=== PATIENT | female | born 2000 | race Caucasian/White ===

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

== ENCOUNTER 2022-06-11 21:19 | Emergency (ER) | payer OTHER, SELFPAY ==
[2022-06-11 22:01] VITALS: BP 126/72; PULSE 101; RESP 18; TEMP 36.8; O2SAT 98; BMI 26.5
[2022-06-11 22:27] LABS: MANUAL DIFF FLAG NO
[2022-06-11 22:33] LABS: Basophils Percent Auto 0.2 % (0-2); Eosinophils Absolute Auto 0.1 X10*3/uL (0.0-0.4); Eosinophils Percent Auto 0.8 % (0-4); Hematocrit 37.8 % (37.0-47.0); Hemoglobin 12.9 g/dl (12.0-16.0); Imm Gran Abs Auto 0.03 X10*3/uL (0.00-0.03); Imm Gran Pct Auto 0.3 % (0.0-0.4); Lymphocytes Absolute Auto 1.7 X10*3/uL (1.2-4.9); Lymphocytes Percent Auto 16.7 % (20-40); Mean Corpuscular HGB Conc 34.1 g/dl (31.0-35.0); Mean Corpuscular Hemoglobin 29.6 pg (27.0-33.0); Mean Corpuscular Volume 86.7 fL (80.0-98.0); Mean Platelet Volume 9.9 fL (9.4-12.3); Monocytes Absolute Auto 0.5 X10*3/uL (0.1-1.2); Monocytes Percent Auto 4.7 % (2-11); Neutrophils Percent Auto 77.3 % (45-73); Platelet Count 246 X10*3/uL (160-400); Red Blood Count 4.36 X10*6/uL (4.20-5.50); Red Cell Distribution Width 12.5 % (11.0-16.0); White Blood Count 10.4 X10*3/uL (4.8-10.8)
[2022-06-11 22:35] LABS: Appearance Urine HAZY; Color Urine YELLOW; Glucose Urine UA NEG (NEG); Leukocyte Esterase Urine 1+ (NEG); Nitrite Urine NEG (NEG); Specific Gravity - Urine 1.025 (1.005-1.025); UACC Culture Trigger YES; Urine Blood NEG (NEG); Urine Ketones NEG (NEG); Urine Protein NEG (NEG-TRACE)
[2022-06-11 22:37] LABS: UPreg QC Valid YES; Urine Pregnancy POSITIVE (NEGATIVE)
[2022-06-11 22:45] LABS: WBC Urine 0-2 /HPF (0-4)
[2022-06-11 22:46] LABS: Bacteria Urine 2+ /LPF; RBC Urine 0 /HPF (0); Squamous Epithelial Cell Urine 1+ /LPF
[2022-06-11 22:49] LABS: Alanine Aminotransferase 17 U/L (0-31); Albumin Level 4.1 g/dL (3.5-5.0); Alkaline Phosphatase 46 U/L (39-117); Anion Gap 11 (12-20); Aspartate Amino Transferase 17 U/L (5-31); Bilirubin Total 0.2 mg/dL (0.0-1.0); Blood Urea Nitrogen 9 mg/dL (9-16); Calcium 9.4 mg/dL (8.4-10.2); Carbon Dioxide 26 mmol/L (22-29); Chloride 103 mmol/L (96-108); Creatinine Clr Calc Pharmacy 130.9; Estimated Glomerular Filt Rate > 60; Glucose Random 85 mg/dL (60-115); Sodium 136 mmol/L (135-145); Total Protein 6.9 g/dL (6.5-8.0)
--- NOTE | 2022-06-12 00:48 | ED_ITS ---
HPI - Headache General Chief Complaint: Neuro Symptoms/Deficit Stated Complaint: blurring vision ,headache [id number] Time Seen by Provider: 06/11/22 22:47 Source: patient Mode of arrival: ambulatory Limitations: no limitations History of Present Illness HPI Narrative: Patient with no significant past medical history complaining of sudden onset of blurred vision with pain in behind eyes no nausea no vomiting no light sensitivity patient seems very anxious on arrival no history of prior headaches in the past. Patient is 4 months Related Data Allergies Allergy/AdvReac Type Severity Reaction Status Date / Time No Known Allergies Allergy Verified 06/11/22 22:01 Review of Systems Review of Systems: Yes all other systems are reviewed and are negative [facility] Social History Social History Advance Directives: No Physical Exam Vital Signs: Vital Signs: Last Vital Signs Temp 98.3 F 06/11/22 22:01 Pulse 97 06/12/22 01:35 Resp 16 06/12/22 01:35 BP 113/66 06/12/22 01:35 Pulse Ox 99 06/12/22 01:35 O2 Del Method 06/12/22 01:35 BMI result Body Mass Index 26.5 Appearance: Alert. Oriented X3. No acute distress. Anxious Eyes;Perrla, no nystagmus no tenderness on palpation of the eyeballs EOMI fundus examination normal no papilledema ENT: Pharynx normal. Oral Mucosa moist Neck: Normal inspection. Neck supple. CVS: Normal heart rate and rhythm. Pulses normal. Respiratory: No respiratory distress. Equal air entry bilateral, no wheezing/rales/rhonchi Skin: Skin warm and dry. Normal skin color. Normal skin turgor. Extremities: No lower extremity edema. Neuro: Oriented X 3. MDM - Headache MDM Narrative Medical decision making narrative: Patient nonspecific symptoms stable labs clinically ocular migraine discharge patient home on Tylenol patient is 4 months Lab Data Result diagrams: 06/11/22 22:20 06/11/22 22:20 Labs: Lab Results 06/11/22 06/11/22 06/11/22 Range/Units 22:20 22:20 22:20 WBC 10.4 (4.8-10.8) X10*3/uL RBC 4.36 (4.20-5.50) X10*6/uL Hgb 12.9 (12.0-16.0) g/dl Hct 37.8 (37.0-47.0) % MCV 86.7 (80.0-98.0) fL MCH 29.6 (27.0-33.0) pg MCHC 34.1 (31.0-35.0) g/dl RDW 12.5 (11.0-16.0) % Plt Count 246 (160-400) X10*3/uL MPV 9.9 (9.4-12.3) fL Immature Gran % (Auto) 0.3 (0.0-0.4) % Neut % (Auto) 77.3 H (45-73) % Lymph % (Auto) 16.7 L (20-40) % Josephine % (Auto) 4.7 (2-11) % Eos % (Auto) 0.8 (0-4) % Baso % (Auto) 0.2 (0-2) % Lymph # (Auto) 1.7 (1.2-4.9) X10*3/uL Josephine # (Auto) 0.5 (0.1-1.2) X10*3/uL Eos # (Auto) 0.1 (0.0-0.4) X10*3/uL Baso # (Auto) 0.0 (0.0-0.2) X10*3/uL Abs Immat Gran (auto) 0.03 (0.00-0.03) X10*3/uL Absolute Neuts (auto) 8.0 (2.0-8.3) x10*3/uL Absolute Nucleated RBC 0.000 (0.0-0.012) X10*3/uL Nucleated RBC % (auto) 0.0 (0.0-0.2) /100WBC Sodium 136 (135-145) mmol/L Potassium 4.0 (3.3-5.1) mmol/L Chloride 103 (96-108) mmol/L Carbon Dioxide 26 (22-29) mmol/L Anion Gap 11 L (12-20) BUN 9 (9-16) mg/dL Creatinine 0.61 (0.5-1.4) mg/dL Estim Creat Clear Calc 130.9 Estimated GFR > 60 Random Glucose 85 (60-115) mg/dL Calcium 9.4 (8.4-10.2) mg/dL Total Bilirubin 0.2 (0.0-1.0) mg/dL AST 17 (5-31) U/L ALT 17 (0-31) U/L Alkaline Phosphatase 46 (39-117) U/L Total Protein 6.9 (6.5-8.0) g/dL Albumin 4.1 (3.5-5.0) g/dL Urine Color Urine Appearance Urine pH (5.0-8.0) Ur Specific [place] (1.005-1.025) Urine Protein (NEG-TRACE) MG/DL Urine Glucose (UA) (NEG) MG/DL Urine Ketones (NEG) MG/DL Urine Blood (NEG) Urine Nitrite (NEG) Ur Leukocyte Esterase (NEG) Urine RBC (0) /HPF Urine WBC (0-4) /HPF Ur Squamous Epith Cells /LPF Urine Bacteria /LPF Urine Test POSITIVE H (NEGATIVE) 06/11/22 Range/Units 22:20 WBC (4.8-10.8) X10*3/uL RBC (4.20-5.50) X10*6/uL Hgb (12.0-16.0) g/dl Hct (37.0-47.0) % MCV (80.0-98.0) fL MCH (27.0-33.0) pg MCHC (31.0-35.0) g/dl RDW (11.0-16.0) % Plt Count (160-400) X10*3/uL MPV (9.4-12.3) fL Immature Gran % (Auto) (0.0-0.4) % Neut % (Auto) (45-73) % Lymph % (Auto) (20-40) % Josephine % (Auto) (2-11) % Eos % (Auto) (0-4) % Baso % (Auto) (0-2) % Lymph # (Auto) (1.2-4.9) X10*3/uL Josephine # (Auto) (0.1-1.2) X10*3/uL Eos # (Auto) (0.0-0.4) X10*3/uL Baso # (Auto) (0.0-0.2) X10*3/uL Abs Immat Gran (auto) (0.00-0.03) X10*3/uL Absolute Neuts (auto) (2.0-8.3) x10*3/uL Absolute Nucleated RBC (0.0-0.012) X10*3/uL Nucleated RBC % (auto) (0.0-0.2) /100WBC Sodium (135-145) mmol/L Potassium (3.3-5.1) mmol/L Chloride (96-108) mmol/L Carbon Dioxide (22-29) mmol/L Anion Gap (12-20) BUN (9-16) mg/dL Creatinine (0.5-1.4) mg/dL Estim Creat Clear Calc Estimated GFR Random Glucose (60-115) mg/dL Calcium (8.4-10.2) mg/dL Total Bilirubin (0.0-1.0) mg/dL AST (5-31) U/L ALT (0-31) U/L Alkaline Phosphatase (39-117) U/L Total Protein (6.5-8.0) g/dL Albumin (3.5-5.0) g/dL Urine Color YELLOW Urine Appearance HAZY Urine pH 6.0 (5.0-8.0) Ur Specific [place] 1.025 (1.005-1.025) Urine Protein NEG (NEG-TRACE) MG/DL Urine Glucose (UA) NEG (NEG) MG/DL Urine Ketones NEG (NEG) MG/DL Urine Blood NEG (NEG) Urine Nitrite NEG (NEG) Ur Leukocyte Esterase 1+ H (NEG) Urine RBC 0 (0) /HPF Urine WBC 0-2 (0-4) /HPF Ur Squamous Epith Cells 1+ /LPF Urine Bacteria 2+ /LPF Urine Test (NEGATIVE) Discharge Plan Discharge Clinical Impression: Ocular migraine Patient Disposition: Home, Self-Care Instructions: Ocular Migraine (ED) Additional Instructions: Rest at home Take Tylenol for headache Your limited in taking the medication, follow with your PCP if headache continues Report to the ED if vomiting fever worsening of the headache Interventions: ED Discharge Assessment Last Done: 06/12/22 01:40 Discharge Date/Time: 06/12/22 01:41
[2022-06-12 01:35] VITALS: BP 113/66; PULSE 97; RESP 16; O2SAT 99
== END 2022-06-12 01:41 | disposition home or self-care (01) ==
PROVIDERS: Emergency Provider Internal Medicine; PCP Physician Assistant
DX: G43.909 Migraine, unspecified, not intractable, without status migrainosus (principal); H53.8 Other visual disturbances; Z79.899 Other long term (current) drug therapy
CPT/HCPCS: 36415; 80053; 81001; 81025; 85025; 87086; 99283; 99284

== ENCOUNTER 2022-12-08 20:59 | Emergency (ER) | payer OTHER, SELFPAY ==
--- NOTE | ~2022-12-08 | CT_ITS ---
EXAMINATION: CT ABDOMEN AND PELVIS WITHOUT CONTRAST CLINICAL INFORMATION: Right lower quadrant pain with question of appendicitis COMPARISON: None TECHNIQUE: Multidetector volumetric imaging was performed from the superior aspect of the liver through the pubic symphysis. Sagittal and coronal reformatted images were obtained on the technologist's workstation. This CT examination was performed using dose optimization techniques as appropriate, variously including the following: *Automated exposure control *Adjustment of mA and/or kV according to patient size (this includes techniques or standardized protocols for targeted exams where dose is matched to indication/reason for exam; i.e. extremities or head) *Use of iterative reconstruction technique DLP: 566 mGy-cm FINDINGS: LUNG BASES: The visualized lung bases are unremarkable. LIVER, GALLBLADDER, AND BILIARY TREE: The liver is normal in size, shape, and attenuation. No focal hepatic lesion or biliary ductal dilatation is present. The gallbladder is unremarkable with no evidence of radiopaque gallstones, gallbladder wall thickening, or obvious pericholecystic inflammatory changes. PANCREAS: Unremarkable. SPLEEN: There is mild splenomegaly with spleen measuring 13.1 cm in greatest length ADRENAL GLANDS: Unremarkable. KIDNEYS AND URETERS: The kidneys are normal in size, shape, and attenuation. There is a 2 mm nonobstructing calculus present in the mid to upper right kidney. No hydronephrosis, hydroureter, or additional calculi seen. No perinephric stranding. BLADDER: Unremarkable. GASTROINTESTINAL TRACT: The small and large bowel are unremarkable. The appendix is unremarkable. ABDOMINAL WALL: No significant hernia is appreciated. LYMPH NODES: No retroperitoneal lymphadenopathy. VASCULAR: Unremarkable. PELVIC VISCERA: Unremarkable. OSSEOUS STRUCTURES: Unremarkable. CT/CT abdomen pelvis wo IV con IMPRESSION: 1. A cause for the patient's acute right lower quadrant pain has not been found. The appendix is normal. 2. Incidental note made of mild splenomegaly and a 2 mm nonobstructing right renal calculus. Fleischner guidelines were followed.
[2022-12-08 21:01] VITALS: BP 113/69; PULSE 122; RESP 18; TEMP 36.7; O2SAT 97; BMI 28.3
[2022-12-08 21:20] LABS: MANUAL DIFF FLAG NO
--- OUTSIDE RECORDS SUMMARY | 2022-12-08 21:22 | XMS_ITS | Continuity of Care Document ---
:2000 Author Organization [facility] Address [address] [place] [id number]- Care Team Providers Name Role Phone Jonathon PEACE, [facility] Primary Care Physician Encounter [facility] [place] Date(s): 11/21/22 - 11/23/[address] [address] Discharge Disposition: A-D/C Home Attending Physician: Yanet Portillo MD Admitting Physician: Yanet Portillo MD Referring Physician: Yanet Portillo MD Allergies, Adverse Reactions, Alerts No Known Allergies Immunizations Given and Recorded Vaccine Date Status Refusal Reason Measles/Mumps/Rubella Virus Vaccine 11/23/22 Given influenza virus vaccine, inactivated 09/29/22 Given tetanus/diphtheria/pertussis, acel(Tdap) 09/12/22 Recorde d Medications acetaminophen 325 mg oral tablet 650 mg, By Mouth, Every 4 hours, PRN, (1-3), may give 325mg per patient preference and re-dose with 325mg within 4 hours, if needed. Patient should only receive a total of 650mg of Acetaminophen every 4 hours., # 50 tablet, Refills 0, Tot. Refills 0... Start Date: 11/23/22 Status: Ordereddocusate sodium 100 mg oral capsule 100 mg, 1, capsule, By Mouth, 2 times a day, PRN, # 60 capsule, Refills 0, Tot. Refills 0, Maintenance, Constipation, 11/23/22 6:16:00 EST, Route to Pharmacy Electronically, [facility]/pharmacy #[id number], Partialfill upon patient request if the prescription is... Start Date: 11/23/22 Status: Orderedibuprofen 800 mg oral tablet 800 mg, 1, tablet, By Mouth, Every 8 hours, PRN, (4-6), may give 400mg per patient preference and re-dose with 400mg within 8 hours if needed. Patient should only receive a total of 800mg of Ibuprofen every 8 hours., # 40 tablet, Refills 0, Tot. Ref... Start Date: 11/23/22 Status: Orderedpolyethylene glycol 3350 oral powder for reconstitution = 17 Gm, By Mouth, Daily, dissolve in water before taking, # 255 Gm, 0 Refills, Maintenance, 11/23/22 6:16:00 EST, REC Powder, [id number], Partial fill upon patient request if the prescription is for a schedule II opioid drug., 17 Gm By Mouth... Start Date: 11/23/22 Status: OrderedPrenatal Multivitamins with Folic Acid 1 mg oral tablet 1 tablet, By Mouth, Daily, # 90 tablet, 3 Refills, Maintenance, 05/23/22 11:17:00 EDT, Tablet, [id number], Partial fill upon patient request if the prescription is for a schedule II opioid drug., 1 tablet By Mouth Daily, 160, cm, 05/23/22 10:5... Start Date: 05/23/22 Status: OrderedSenna 8.6 mg oral tablet 8.6 mg, 1, tablet, By Mouth, Daily, # 50 tablet, Refills 0, Tot. Refills 0, Maintenance, 11/23/22 6:15:00 EST, Route to Pharmacy Electronically, [id number] Tablet, Partial fill upon patient request if the prescription is for a schedule II opio... Start Date: 11/23/22 Status: Ordered Problem List Condition Confirmation Course Effective Dates Status Health Stat us Informant Renal hypoplasia Confirmed Active Obese class I Confirmed Active Confirmed Active Need for rubella Confirmed Active vaccination Rh negative Confirmed Active Vital Signs Most recent to oldest 1 2 3 [Reference Range]: Height 160 cm 160 cm 160 cm (11/23/22 9:34 AM) (11/23/22 4:30 AM) (11/23/22 12:00 AM) Weight 81.64 kg 84.2 kg (11/21/22 2:01 AM) (11/21/22 12:38 AM) Oxygen Saturation [94-100 98 % 100 % 100 % %] (11/23/22 4:30 AM) (11/23/22 12:00 AM) (11/22/22 8:00 PM) Pulse Rate [55-90 bpm] 72 bpm 77 bpm 88 bpm (11/23/22 9:34 AM) (11/23/22 4:30 AM) (11/23/22 12:00 AM) Body Mass Index 31.89 kg/m2 [18.5-24.99 kg/m2] *>HHI* (11/21/22 2:01 AM) Blood Pressure 114/72 mm Hg 128/78 mm Hg 121/70 mm Hg [90-138/55-84 mm Hg] (11/23/22 9:34 AM) (11/23/22 4:30 AM) (10/31 04/20 12:00 AM) Respiratory Rate [16-30 20 br/min 18 br/min 17 br/mi n br/min] (11/23/22 9:34 AM) (11/23/22 4:30 AM) (11/23/22 12:00 AM) Temperature [96.8-100.4 98.6 DegF 98.2 DegF 98.2 Deg F DegF] (11/23/22 9:34 AM) (11/22/22 8:00 PM) (11/22/22 3:50 PM) Mode of Delivery (Oxygen) Room air Room air Room a ir (11/23/22 4:30 AM) (11/23/22 12:00 AM) (11/22/22 8:00 PM) Blood pressure sites Arm, right Arm, right Arm, right (11/23/22 9:34 AM) (11/22/22 3:50 PM) (11/22/22 12:27 PM) Temperature Route Oral Oral Oral (11/23/22 9:34 AM) (11/22/22 8:00 PM) (11/22/22 3:50 PM) Dry Weight 81.64 kg 84.2 kg (11/21/22 2:01 AM) (11/21/22 12:38 AM) Weight Obtained Via Standing scale (11/21/22 12:38 AM) Dry Weight Obtained Via Standing scale (11/21/22 12:38 AM) Social History Social History Type Response Smoking Status Never (less than 100 in life time) entered on: 5/24/22 Sex History and physical note Tena Kirkland CNM: PERFORM Event Display: History and Physical Hospital Authored Date: Patient: ??JORGE CORRAL ? Age:??21 Years?Sex:??Female?:??2000?? OB Reason for Admission OB Reason for Admission Reason for admission: Labor LMP/EGA/ALEX Gestational Age (EGA) and ALEX? * Note: EGA calculated as of 11/21/2022 ?? ALEX:??11/30/2022?EGA*:??38 weeks 5 days ? History?(0,0,0,0)?Method:??Last Menstrual Period??(02/23/2022) History of Present Illness Jorge presents c/o one episode of VB on TP tonight, UCs starting at 6-7p, no LOF, +FM. Coping well with UCs. KEILA Ramos is with her and supportive Review of Systems Constitutional:??No fever, chills, weakness or fatigue. HEENT:??No visual loss, blurred vision, double vision or yellow sclera. No hearing loss, sneezing, congestion, runny nose or sore throat. Skin:??No rash or itching. Cardiovascular:??No chest pain or palpitations. Respiratory:??No shortness of breath or cough. Gastrointestinal:??No anorexia, nausea, vomiting, diarrhea or constipation. No epigastric or RUQ pain Genitourinary:??No burning with urination. No vulvovaginal lesions, discharge or irritation. No pelvic pain.?? Neurologic:??No headache, dizziness, syncope, numbness or tingling.?? Musculoskeletal:??Normal discomforts of . Psychiatric:??No depression or anxiety. Physical Exam Vitals & Measurements T:??98.4?F ?? HR:??106(Monitored)?? SD:??108?? RR:??18?? BP:??139/84?? SpO2:??98%?? WT:??84.2??kg?? General:??pleasant, looks uncomfortable during UCs Mental Status:??Oriented to person, place and time. Normal affect, appropriate Respiratory:??Lung sounds clear, no coughing Cardiovascular:??RRR, no murmur Abdomen/ GI:??gravid, non-tender, soft Skin:??No rashes or lesions Musculoskeletal:??WNL Extremities:??WNL, no edema External genitalia:??no lesions ?? OB Assessment Baby A Baseline:140 Baseline Description:Normal, 110-160 bpm Baseline Variability:Moderate variability Accelerations:Present Deceleration:None Activity:Present Cervical Estimated Weight:3500 gm Membrane Status:Intact Uterine Number of Contractions per 10 minutes4 Monitor Mode, UterineExternal Cervical Cervical Dilatation6 cm Cervical Obqehrsbgo86% Station-2 Assessment/Plan Normal labor (O80):??Term nullip, early active labor Cat I tracing GBS pos Rh neg ?? Admit, labs, PCN, expectant mgmt., OB Team notified ?? GBS (group B Streptococcus carrier), +RV culture, currently (O99.820):? Start IV PCN prophylaxis ?? Need for rubella vaccination (Z23):??need??for vaccination ?? 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 She was on HCTZ in past, not at present. Per MFM- CR and UC in 3rd tri- ordered 09/29- RESULTS:_WNL, C&C no growth__ - Continue ASA - Low threshold for evaluation for a kidney stone No urinary sx this pg ?? Rh negative (Z67.91):??28w Rhogam given, PP??Rhogam prn ?? OB History History?(0,0,0,0)?No previous pregnancies history have been recorded Labs Labs Labs & Tests ABO: O (05/21/22) Antibody Screen: Negative (09/12/22) Chlamydia Trachomatis Amplified Probe: NEGATIVE (11/04/22) Creatinine-Blood: 0.5 mg/dL (09/29/22) Down Syndrome Age Risk FTS: Age Risk: (05/21/22) Down Syndrome Scrn Risk FTS: Screening Risk: (05/21/22) Glucose 50 Gm, +60 Minutes: 88 mg/dL (09/12/22) Hct: 38.4 % (09/12/22) Hepatitis B Surface Antigen: NEGATIVE (05/21/22) Hepatitis C Ab: NEGATIVE (05/21/22) Hgb: 12.8 Gm/dL (09/12/22) HIV 4th Generation Ab-Ag Result: NEGATIVE (05/21/22) RH Test Only: Negative (05/21/22) RPR Titer Result: NOT INDICATED (09/12/22) Rubella IgG Ab: EQUIVOCAL (05/21/22) Syphilis Screen by VALERIE: NEGATIVE (09/12/22) Trisomy 18 Scrn Risk FTS: Screening Risk: (05/21/22) Urine Culture: Urine Culture (09/29/22) Problem List Active Active Problem List Need for rubella vaccination: (Medical) Obese class I: (Medical) : (Obstetric) (02/23/22) : (Medical) Renal hypoplasia: (Medical) Rh negative: (Medical) Procedure/Surgical History [place] tooth: 2019 Home Medications Aspirin: 81 mg = 1 tablet, By Mouth, Daily Hydrochlorothiazide: 25 mg, By Mouth, Daily Multivitamin, Multivitamin, : 1 tablet, By Mouth, Daily Allergies NKA Social History Alcohol Use: Past. Alcohol use in household: No., 04/22/2022 Electronic Cigarette/Vaping Electronic Cigarette Use: 1 or 2 in life time., 04/22/2022 Employment/School Status: Unemployed., 04/22/2022 Exercise Self assessment: Good condition., 04/22/2022 Home/Environment Living situation: Home/Independent. Lives with: Significant other., 04/22/2022 Nutrition/Health Diet: Regular, Low sodium., 04/22/2022 Sexual Sexually involved in last 6 months: Yes. Gender identity: Identifies as female. Self described orientation: Straight or heterosexual., 04/22/2022 Substance Abuse Use: Never. Substance abuse in household: No., 04/22/2022 Tobacco Use: Never (less than 100 in lifetime)., 04/22/2022 Family History No family history recorded. Plan OB Plan Circumcision Plan: None (11/21/22) Contraceptives: IUD at visit (11/21/22) Infant Feeding Plan: Breast milk (11/21/22) Labor Coping Mechanisms: Hydrotherapy (11/21/22) Patient Requests: having a boy! ??Partner Anatoliy and her father Sebastian for labor supportWants to avoid epidural, open to NitrousPlanning Mirena at 6 wk PP visit (11/21/22) Hospital Progress note Belen Driscoll LPN: PERFORM, SIGN, VERIFY Event Display: Progress Note Hospital Authored Date: [id number] Patient: JORGE CORRAL Age: 22 years Sex: Female : 2000 Associated Diagnoses: None Author: Belen Driscoll LPN Pt out of bed ad arthur ambulating in room frequently. Taking in food and fluids well without nausea. Pt voiding without difficulty, [place] care reviewed. Patient states pain is well controlled on current medication regime. Mild rubra flow with no clots noted. Pt using Tucks to [place] area. Caring for appropriately, will continue to monitor. Call hrenandez within reach.Cassidy Vickers RN: PERFORM, SIGN, VERIFY Event Display: Progress Note Hospital Authored Date: [id number] Patient: JORGE CORRAL Age: 22 years Sex: Female : 2000 Associated Diagnoses: None Author: Cassidy Vickers RN Findings Assumed care and safety checks done. Color pink, cry and activity, + void, + stools. Infant good latch, suck, swallow noted. worked with pt and pt doing well . @,firm, mild bleeding. Pt states mild pain and soreness but well managed with tylenol and motrin. Bowel regimen given this AM and pt states passing gas. Ice encouraged on bottom pt still swollen. No major concerns. VSS. Will continue to monitor.Ilana Vanessa CNM: PERFORM Event Display: Progress Note Hospital Authored Date: Patient: ??JORGE CORRAL ? Age:??22 Years?Sex:??Female?:??2000?? Subjective Patient doing well this morning. Ambulating, tolerating PO, voiding. Pain well controlled. Bleeding is min to moderate. No concerns today. Review of Systems General: No fevers or chills Neuro: No headache, changes in vision CV: No chest pain Pulmonary: no shortness of breath GI: No N/V. : Lochia??< menses, some pain??with movement Ext: No swelling, or redness of the legs Physical Exam Vitals & Measurements T:??98.0?F ?? HR:??92(Monitored)?? SD:??94?? RR:??18?? BP:??129/74?? SpO2:??98%?? HT:??160??cm?? WT:??3.519??kg?? BMI:??31.89?? General: Awake, alert HEENT: Within normal limits Breast: Not engorged, nipples intact and everted Abdomen: Fundus is firm??@ umbilicus +1 with full bladder Perineum: , no erythema, no edema Ext: No edema of bilateral lower ext. Assessment/Plan state (Z39.2):??Meeting milestones VSS Pain well managed Tolerating PO Voiding well well Plan DC tomorrow ?? Type 3a perineal laceration (O70.21):??Ice and tucks pads used for comfort Minimal swelling follow up in office ?? Gestational hypertension (O13.9):??Normotensive Asymptomatic Baby scripts at home ?? Rh negative (Z67.91):??Rhogam given today ?? Need for rubella vaccination (Z23):??MMR ordered ?? OB Summary : 1 . Baby A - Weight: 3.519 kg Baby A - Date, Time of : 11/21/22 19:43:00 Baby A - Gender: Male Baby A - Complications: Bruising EGA at Documented Date, Time: 38W 5D Weight at Delivery Baby A - Delivery Type: Vaginal, forcep assist Delivery Complications: None OB History History?(0,0,0,0)?No previous pregnancies history have been recorded Active Problem List Active Problem List Need for rubella vaccination: (Medical) Obese class I: (Medical) : (Obstetric) (02/23/22) : (Medical) Renal hypoplasia: (Medical) Rh negative: (Medical) Home Medications Aspirin: 81 mg = 1 tablet, By Mouth, Daily Hydrochlorothiazide: 25 mg, By Mouth, Daily Multivitamin, Multivitamin, : 1 tablet, By Mouth, Daily Medications Medications (9) Active SCHEDULED: (4) Lidocaine 1% Inj (20 mL) (Lidocaine 1% Inj) ??20 mL, Subcutaneous Injection, Once Measles / Mumps / Rubella Vaccine (Measles/Mumps/Rubella Virus Vaccine Inj) ??0.5 mL, Subcutaneous Injection, Once Polyethylene Glycol 17 Gm Powder (MiraLax Powder) ??17 Gm 1 pack/packet, By Mouth, Daily Senna Tablet (Senna 8.6 mg oral tablet) ??8.6 mg 1 tablet, By Mouth, Daily CONTINUOUS: (1) Lactated Ringers (1000 mL) Cont IV 1,000 mL (Lactated Ringers 1,000 mL) ??1,000 mL, IV Infusion, 125 mL/hr PRN: (4) Acetaminophen 325 mg Tablet (Acetaminophen Tablet) ??650 mg, By Mouth, Every 4 hours Calcium Carbonate 500 mg (Calcium 200 mg) Chewable Tablet (Tums 500 mg Tablet) ??1,000 mg 2 tablet,Chew, 3 times a day Docusate Sodium 100 mg Capsule (Docusate Sodium Capsule) ??100 mg 1 capsule, By Mouth, 2 times a day Ibuprofen 800 mg Tablet (Ibuprofen Tablet) ??800 mg, By Mouth, Every 8 hours Note Belen Driscoll LPN: PERFORM Event Display: Discharge/Transfer Note Hospital Authored Date: [id number] Nursing Discharge Note Entered On: 11/23/2022 13:05 EST Performed On: 11/23/2022 13:03 EST by Belen Driscoll LPN Nursing Discharge Note 2 Discharge Time : 11/23/2022 12:30 EST Discharge Level of Care at Discharge : Home/Senior Living/Foster Care Patient Left Unit Via : Ambulatory Patient Accompanied Off Unit with : Significant other, Other: DC Instructions Provided & Signed by Pt : Yes Patient Understands D/C Instructions : Yes Patient Instructions Discharge Signed : Yes Did Pt have Specialty Bed or Wound Vac : No Belen Driscoll LPN - 11/23/2022 13:03 ESTGealphonse DOMercedes N: PERFORM Event Display: Discharge/Transfer Note Hospital Authored Date: [id number] Patient: ??JORGE CORRAL ? Age:??22 Years?Sex:??Female?:??2000?? Admit Date Admission Date: 11/21/2022 Discharge Date 11/23/22 OB Reason for Admission OB Reason for Admission Reason for admission: Labor OBN Hospital Course 21yo G1 at 38 weeks 5 days admitted in labor. She proceeded to have an abnormal labor curve, as shewas 9cm for prolonged period of time and then fully dilated and actively pushed for more than 3 hours once full dilated. Ruled in for gestational hypertension with??HELLP labs within normal limits.??She underwent a forceps assisted operative vaginal delivery which was complicated by EBL of 1100mL. Shereceived misoprostol for intermittent uterine atony immediately following delivery. She also had a 3A laceration which was repaired in normal fashion. course uncomplicated. Discharged on day 2. ?? on the morning of discharge, states her pain is well controlled with current regimen. Her lochiais like a light??period. She is ambulating, voiding spontaneously, and tolerating regular diet. She is / bottle feeding and has no concerns at this time. ??Denies fevers, chills, chest pain, shortness of breath, leg swelling, nausea, or vomiting.?? Objective/Physical Exam on Day of Discharge Vitals & Measurements T:??98.2?F ?? HR:??92(Monitored)?? SD:??77?? RR:??18?? BP:??128/78?? SpO2:??98%?? HT:??160??cm?? WT:??3.519??kg?? BMI:??31.89?? General: pleasant, cooperative,??laying comfortably in bed, well appearing, in no acute distress CV: Regular rate and rhythm, no murmurs Pulm: Clear to auscultation bilaterally, equal bilaterally, no use of accessory muscles,??no wheezing, rales,??or crackles Abd: soft, appropriately tender, fundus firm, above/at/below umbilicus...__C/S: incision clean, dryand intact without evidence of induration/erythema. Bandage in place__. Fundus firm and _ umbilicus. Senior Information Developer: Minimal spotting on peripad. laceration repair intact__ Psych: appropriate mood and affect. answering questions appropriately. Ext: non-tender, non-edematous Assessment/Plan/Discharge Diagnosis Assessment:??21yo G1 now P1 day 2 from forceps assisted vaginal delivery with 3A laceration. Ruled in for gestational hypertension with normal HELLP labs and blood pressures normotensive??inpostpartum course. Meeting milestones. ?? Gestational hypertension (O13.9):? baby scripts on discharge ?? state (Z39.2):? pain control: ibu/tyl IUD at visit ?? Rh negative (Z67.91):? s/p rhogam ?? Type 3a perineal laceration (O70.21):? bowel regimen ordered ?? Care: monitoring for hypertension Future Appointments Thursday 8:40 AM EST ?? With: Mercedes Luo CNM Where: [facility] [employer] [address] [address]- Thursday 9:00 AM EST ?? With: Marjan Mcduffie CNM Where: [facility] [employer] [address] [place] [address]- Delivery Summary Delivery Summary Maternal Information ??Labor Information ?Baby A ?Labor Onset Methods: ??Spontaneous ??Delivery Information ?Gestational Age at Delivery: ??38W 5D ?Anesthesia OB: ??Epidural ??11/21/22 22:32:08, Epidural ??11/21/22 05:14:13 ?Obstetrical Laceration: ??Perineal laceration, Periurethral laceration ?Perineal Laceration: ??Midline, 3A (<50% of EAS is torn) ?Perineal Laceration Repair: ??Vicryl suture ?Periurethral Laceration: ??Bilateral ?Periurethral Laceration Repair: ??Not repaired ?Anesthesia for Repair: ??Epidural, Local ?Delivery Complications: ??None ?Blood Loss(ml): ??1100 mL ? Baby A ??Delivery Information ?Delivery Type: ??Vaginal, forcep assist ?Date, Time of : ??11/21/22 19:43:00 ?Foot of bed removed: ??Yes ?Delayed Cord Clamping: ??Yes ?Placenta Delivery Date/Time: ??11/21/22 19:46:00 ?Placenta Delivery Method: ??Spontaneous ?Placenta Appearance: ??Normal ?Placenta to Pathology: ??No ??Care Team ?Attending Provider: ??Cassidy Astudillo DO ?Delivery Physician: ??Cassidy Astudillo DO ?Self Storage Manager Provider #1: ??Jesusita DO, Shanell S ?assistant produce manager #1: ??Mary Carlton RN ?assistant produce manager #2: ??Rafa RNYasmeen ?Time NICU Team Called: ??11/21/22 19:39:00 ??Labor Information ?ROM Date, Time: ??11/21/22 13:22:00 ? monitoring: ??External monitor ?? Information ? Outcome: ??Live ? Position: ??Occiput anterior ? Weight: ??3.519 kg ? Score 1 minute: ??8 ? Score 5 minute: ??9 ? Score 10 minute: ??9 ?Transferred To: ?? Care area with Family ?Umbilical Cord Description: ??3 vessel cord ? Complications: ??None ?Gender: ??Male ??Operative Delivery ?Operative delivery: ??Forceps ?Reasons for operative delivery: ??Maternal exhaustion ?Forceps type: ??Canela ?Number of contractions forceps used: ??2 ? position at forceps application: ??Asynclitic ? station at forceps application: ??2 ?Forceps consent obtained: ??Verbally ? Procedures Performed Vaginal forceps-Assisted ? Discharge Medications ???Acetaminophen (acetaminophen 325 mg oral tablet)???Docusate (docusate sodium 100 mg oral capsule)???Ibuprofen (ibuprofen 800 mg oral tablet)???Multivitamin, ( 1)???Multivitamin, ( Multivitamins with Folic Acid 1 mg oral tablet)???Polyethylene Glycol 3350 (polyethylene glycol 3350 oral powder for reconstitution)???Senna (Senna 8.6 mg oral tablet) Stop taking these medications ???Aspirin (aspirin 81 mg oral tablet, chewable)???Hydrochlorothiazide Immunizations during Hospitalization Vaccine Date Statusinfluenza virus vaccine, inactivated 09/29/2022 Given tetanus/diphtheria/pertussis, acel(Tdap) 09/12/2022 Recorded Contraception IUD at visit ? Feeding Method Feeding Method: (11/22/22 08:38:00) Patient Instructions Call your doctor if: you note fever of 100.4 or greater, heavy vaginal bleeding, foul-smelling vaginal discharge, difficulty or burning with urination, nausea and vomiting with inability to tolerate food, pain not controlled by your prescribed medications, redness/swelling/drainage at incision(s), shortness of breath or chest pain. ??- Avoid lifting for 2 weeks ??- Do not put anything in the vagina. No intercourse, tampons, or douching ??- Walk as often as you are able. ??- Continue your stool softeners (examples: colace/docusate, senna, miralax)?? Becca PEACE, Spencer Walker: PERFORM Event Display: Discharge/Transfer Note Hospital Authored Date: [id number] OB attending post- day??2 progress note: ?? I have seen and evaluated this patient. ?? I have discussed the case and its management with the resident team and agree with the findings and plan as documented in the resident???s note. ?? PROBLEM LIST: Need for rubella vaccination Obese class I Renal hypoplasia Rh negative ?? SUBJECTIVE: Tolerating PO.?? Ambulating.?? Lochia < menses. Pain adequately controlled No nausea or vomiting.?? Voiding without difficulty ?? She requests discharge home today ?? Breast-feeding exclusively? Baby boy - circumcision is NOT planned ? OBJECTIVE: Rh negative, RhoGAM has been ordered ?? Rubella equivocal, MMR has been ordered _ ?? Vitals: Temperature?98.6 ?(09:35) Systolic Blood Pressure?114 ?(09:35) Diastolic Blood Pressure?72 ?(09:35) Pulse?72 ?(09:35) SpO2?98 ?(05:02) Respiratory Rate?20 ?(09:35) ? General impression: No acute distress ? ASSESSMENT AND PLAN: day # 2 from a forceps-assisted vaginal delivery (FAVD). Doing well.? Continue current care.? Meeting all necessary discharge milestones. Plan for discharge home today. Discharge instructions and return precautions discussed. ?? [x] Discharge prescriptions written [x] Discharge medication reconciliation done [x] Discharge order entered [x] She already has [employer] equipment and will continue to check her blood pressures (BPs) as anoutpatient. Order to be placed for [employer] by Moira Beauchamp M.D. ?? Belen Driscoll LPN: PERFORM Event Display: Patient Education/Instruction Authored Date: [id number] Inpatient Adult Discharge Instructions [address] [address] Name: JORGE RIVERA : 2000 Visit: 11/21/2022 01:26:00 Current Date: 11/23/2022 11:15 Account: [id number] Inpatient Adult Discharge Instructions We would like to thank you for allowing us to assist you with your healthcare needs. The following includes patient education materials and information regarding your injury/illness. Our entire staff strives to provide an excellent experience for our patients and their families. PLEASE ENSURE YOU FOLLOW-UP PER THE INSTRUCTIONS BELOW! ?? YOUR OPINION IS IMPORTANT TO US! Please complete the survey you may receive by mail or email. Your feedback will be used to make improvements to the healthcare experiences of our patients and their families. Surveys are administered by [employer] ?? If further treatment with your primary care physician or another doctor is recommended, it is important for you to keep the appointment. Call your primary care physician or return to the Emergency Department immediately if your condition worsens, fails to improve, or new symptoms develop. If you need to find a doctor, you can call [facility] for a referral at [phone] or toll free at [phone] or log in to [email or web address].. ?? You can view and manage your care through the patient portal or by using a health care blas of your choosing. [employer] is a website that allows you to securely view your medical information including your hospital discharge summary, office visit summaries, medications and follow-up visits. You can also request appointments, renew medications, and request access to your medical information using a health care blas of your choosing, or just ask a question. You can enroll at [email or web address] or register during your next office visit. You have been discharged from [facility], Patient Care Unit: [facility]. If you have any questions regarding these instructions after you leave, please call us and we will be happy to assist you. [facility] Your Care Team Attending Physician Bandar PEACE, Yanet Discharging Providers Becca PEACE, Spencer Walker Reason for Admission Labor Your Diagnosis GBS (group B Streptococcus carrier), +RV culture, currently Need for rubella vaccination Rh negative Renal hypoplasia Normal labor Gestational hypertension state Type 3a perineal laceration Tests Performed Below is a partial list of the tests performed during your hospitalization. You may have had other tests and procedures not included in this list. Please discuss all test results with your provider. ALT AST CBC COVID-19 (2019 Novel Coronavirus) PCR?-- Results Pending -- Creatinine Type and Screen ? You will be contacted within 72 hours with your results. Primary Care Provider Sena Holt MD Advance Directive Health Care Proxy on File Yes - Health Care Proxy No qualifying data available. Discharge Vitals Temperature: 98.6 DegF Height: 160 cm Pulse Rate: 72 bpm Weight: 81.64 kg Respiratory Rate: 20 br/min Body Mass Index:??31.89 kg/m2??Critical Systolic Blood Pressure: 114 mm Hg Body surface area: 1.9 Diastolic Blood Pressure: 72 mm Hg ?? Oxygen Saturation: 98 % ?? Studies Pending All tests and labs ordered during this hospital stay have been completed unless listed below. Pleasediscuss all pending results with your provider listed above in these instructions. ?? COVID-19 (2019 Novel Coronavirus) PCR Hold Lavender Tube (BB) (Hold Lavender Tube (BB), ) Protein/Creatinine Ratio Urine What to do next Instructions From Your Doctor Call your doctor if: you note fever of 100.4 or greater, heavy vaginal bleeding, foul-smelling vaginal discharge, difficulty or burning with urination, nausea and vomiting with inability to tolerate food, pain not controlled by your prescribed medications, redness/swelling/drainage at incision(s), shortness of breath or chest pain. ??- Avoid lifting for 2 weeks ??- Do not put anything in the vagina. No intercourse, tampons, or douching ??- Walk as often as you are able. ??- Continue your stool softeners (examples: colace/docusate, senna, miralax)?? Discharge Orders Instructions from your Care Team Discharge Care Instructions for the New Mom?? Please take a few moments to read through these helpful instructions before you leave the hospital. ??Your nurse will be glad to answer any questions you may have. ??You can also find this and more information throughout the purple??Becoming a Family??booklet,??[facility]???s New Beginnings Guide??and th e?? Consultation Services Guide??given to you after the of your baby. ??You may also phone our nurses stations if you have further questions. ??[facility]s: ??First Floor ([phone]). ?? Please call your provider if you have any questions or concerns ??before your next appointment. For ongoing support??please?Like?us on our Facebook page?[facility]???s New Beginnings?and sign up for our email newsletter at??[email or web address]. ??News and information will be sent to you??until your baby???s third birthday. Instructions for the New Mother Activity:?? For the next 2 weeks at home?no heavy lifting, avoid unnecessary stair climbing, and no driving (especially if you are taking medicine that may make you sleepy or feel that you are sleep deprived). ?? For the next 4-6 weeks - no tampons, no douches, no sexual intercourse. Use your [place] bottle to rinse your perineum until your vaginal flow stops. ??If you have stitches inyour bottom, they generally dissolve within 7-10 days. ??Apply Tucks/witch stella pads until your soreness subsides. ??Use your bathroom at home every 3 to 4 hours, rinse, and change your pads. Warm showers feel great on achy muscles, sore backs and sore bottoms. Exercise: Walking is the best form of exercise. ??Wait until your follow up appointment with your provider in 4-6 weeks before engaging in more strenuous activity. Diet: Drink plenty of fluids to avoid constipation and to help support your recovery. Eat plenty of iron rich foods such as red meat, iron fortified cereals like Total and Cream of Wheat, raisins, prunes, greens and spinach. ??These will help to build your blood count back up as all women lose some blood after delivery. ??Also add foods rich in Vitamin C such as strawberries, oranges, papayas, kale and hernandez peppers. Continue to take your vitamins if you are . ??If you are not follow the instructions of your provider. ??If you were prescribed iron supplements such as ferrous sulfate, it is important to continue these until your doctor or bar finish operator tells you to stop. Breast Care for Nursing Mothers: Wear a comfortable fitting, supportive nursing bra. ??An underwire bra is not recommended. Express drops of breast milk and rub over your nipples and areola (brown area) before and after eachfeeding to protect and heal sensitive skin and then air dry your nipples. ??If you are experiencing any soreness, you may purchase nipple cream such as TenderCare or Lansinoh. ??Use it in the followingmanner: ??finish your feeding or pumping session, self-express colostrum onto your nipple and air dry, apply the nipple cream to the nipple and areola. ??Use only small amounts for best results. If you are having difficulty getting the baby to latch onto the breast due to swelling of the areola, try applying pressure with your fingers for a couple of minutes above and below your nipple and walk your fingers outward softening the area and pushing the swelling away. ??This technique is known asreverse pressure softening. ??For demonstrations of this and other techniques such as the Cathedral Hand Expression technique, please refer to the resources section of the Consultation Services Guide that you received from services.?? When your milk first comes in, usually within 3 to 5 days after delivery, you may experience engorgement. ??Your breasts may become swollen and very tender. ??Cold compresses work great to help with discomfort and reduce swelling. It will get better in a couple of days. ??Continue to nurse your baby frequently. ?? Call [facility]???s Consultation Service at [phone], press 1 to schedule an outpatient appointment or press 3??and a etl consultant will return your call that day or the next if you call after 3pm. ? Control: Your doctor or bar finish operator will discuss control methods with you when you are discharged from the hospital or at your checkup. ??Be sure to let your provider know if you are . ?? Pain Management: Cramping after is common and increases in strength with each baby you have. ??If you experience painful cramps, and have no allergies to acetaminophen (Tylenol) or ibuprofen (Motrin), you may continue to take these medications as you did in the hospital. ??Ibuprofen is also helpful with back aches following epidurals, perineal pain following a vaginal delivery, and moderate incisional pain after a section or a tubal ligation. ?? If you experience gas distention, especially after surgery, you may take an over the counter medication called simethicone. ??Take these chewable tablets 4 times a day as needed and directed on the package. ??Keep moving. ??Walking or rocking in a chair, will help to move the gas along. ??Beltran tea made with heated beltran luther (instead of water) and a tea bag, stirred to dissolve carbonation (bubbles) is a helpful drink to soothe a gassy stomach. Warning Signs of a Problem to Notify Your Doctor or Boat Puller of: Heavy vaginal bleeding?which is??soaking a pad every hour??with bright red blood. Passing blood clots the size of an egg or larger. An incision that is not healing. A temperature greater than or equal to 100.4 especially if accompanied by any of the following symptoms?painful, frequent urination; extreme back or flank pain; lower belly pain with a foul smellto your vaginal flow; a red hard hot area on your breast. ??CONTINUE TO CHECK YOUR BLOOD PRESSURE 2 X A DAY??USING YOUR CuPcAkE & other things you bake PHONE BLAS Severe headache that does not go away after taking acetaminophen or ibuprofen. ?? A headache that changes your vision, including seeing spots or blurring. Right sided upper abdominal pain along the rib cage area. Pain in your legs that is warm and tender to the touch. depression signs may include?loss of interest in your baby, weepiness, difficulty focusing, weight loss with no appetite, exhaustion, feeling overwhelmed or anxious, feelings??of despair, or thoughts of harming yourself or your baby. ??These symptoms are important and should be discussed with your doctor or bar finish operator. depression may develop over a period of time and needs prompt medical attention. ??Do not suffer in silence. ??In both the??Becoming a Family??booklet and the??[facility]??New Beginnings Guide??there is a screening tool used to identify women at risk, called the [place] Scale which you have taken in the office prior to delivery and again during your hospitalstay. ??Three to four weeks after your delivery, and before your check with your provider, take this test and share your results with your provider. ??Be sure to mention any score of 10 or more. ?? Many women, and even some partners, may experience the?baby blues?? . ??This is a state of feeling overwhelmed and weepy. ??Discomfort from childbirth, hormonal changes, exhaustion, changes to yourbody and lifestyle are a few of the things that contribute to the highs and lows new parents go through. ??Don???t be afraid to ask your partner or family and friends for some help at home so you can get some rest and a few minutes to yourself. ??The blues will quickly pass. Personal Safety: Every person has the right to feel safe at home and live free from physical or emotional harm. ??If you have suffered mental or physical abuse at home, you are not alone. ??There is help. ??Please callHOTLINE or the [facility] Program at [phone]. Scheduled Follow-Up Appointments Thursday 8:40 AM EST ?? With: Mercedes Luo CNM Where: [facility] [employer] REPA[employer] [address] [place] [phone]- Thursday 9:00 AM EST ?? With: Marjan Mcduffie CNM Where: [facility] [employer] [address] [place] [id number]- You Need to Schedule the Following Appointments Follow Up with??Valerio BLAIR, Mercedes Rodgers When??Within 1 to 2 weeks Where: [address] [place] [address] Midw[place]ery [place] [address]- Discharge Medications JORGE CORRAL :2000 Visit Date:11/21/2022 Medications: Please continue your medications until treatment is completed or stopped by your provider. Medications not listed below should be discontinued. Discuss any questions related to medications with your provider. What How Much When Instructions Next Dose New Acetaminophen (acetaminophen 325 mg oral tablet) 650 Milligram Oral Every 4 hours as needed for Pain , Mild (1-3), may give 325mg per patient preference and re-dose with 325mg within 4 hours, if needed. ?? Patient should only receive a total of 650mg of Acetaminophen every 4 hours. ?? Pickup at [facility]/pharmacy #2070 any time needed New Docusate (docusate sodium 100 mg oral capsule) 1 capsule Oral Twice a day as needed for Constipation Pickup at [facility]/pharmacy #2070 tonight New Ibuprofen (ibuprofen 800 mg oral tablet) 1 tab(s) Oral Every 8 hours as needed for Pain , Moderate (4-6), may give 400mg per patient preference and re-dose with 400mg within 8 hours if needed. ?? Patient should only receive a total of 800mg of Ibuprofen every 8 hours. ?? Pickup at [facility]/pharmacy #2070 any time needed after 2:40 pm today New Polyethylene Glycol 3350 (polyethylene glycol 3350 oral powder for reconstitution) 17 gram Oral Daily dissolve in water before taking ?? Pickup at [facility]/pharmacy #2070 tomorrow New Senna (Senna 8.6 mg oral tablet) 1 tab(s) Oral Daily Pickup at [facility]/pharmacy #2070 tomorrow Changed Multivitamin, ( Multivitamins with Folic Acid 1 mg oral tablet) 1 tab(s) Oral Daily tomorrow Pharmacy Information [facility]/pharmacy #[id number]: [address], [place] [id number] [phone] ?? What How Much When Comments Stop Taking Aspirin (aspirin 81 mg oral tablet, chewable) 1 tab(s) Oral Daily Stop Taking Hydrochlorothiazide 25 Milligram Oral Daily Test Results Below is a partial list of the most recent Laboratory test results done prior to this discharge. You may have had other tests and procedures not included in this list. Please discuss all test results with your provider. Bleed Screening - Negative (11/21/2022) RHIG Available - PT (11/21/2022) RHIG Candidacy Screen - Patient is a candidate for RhIG. Place order (11/21/2022) RHIG LOT # - [id number] (11/21/2022) ALT (11/21/2022) ???ALT (SGPT) - 16 units/L AST (11/21/2022) ???AST (SGOT) - 25 units/L CBC (11/21/2022) ???WBC - 16.6 k/mm3???RBC - 4.34 m/mm3???Hgb - 12.9 Gm/dL???Hct - 38.6 %???MCV - 88.9 femtoliters???MCH - 29.7 pg???MCHC - 33.4 g/dL???Platelet Count - 200 k/mm3???RDW-SD - 42.1 femtoliters???MPV - 10.4 femtoliters???Nucleated RBC (Automated) - 0.0 #/100 WBC'S???Abs. NRBC - 0.0 k/mm3 Creatinine (11/21/2022) ???Creatinine-Blood - 0.7 mg/dL???Estimated GFR Creatinine - 129 ML/MIN/1.73 M2 Type and Screen (11/21/2022) ???Blood Type - O Negative???Antibody Screen - Positive Immunizations This Visit Given Vaccine DateMeasles/Mumps/Rubella Virus Vaccine 11/23/2022 Allergies (NKA means No Known Allergies) NKA Problems Active Problems??(6) Need for rubella vaccination?? Obese class I? Renal hypoplasia?? Rh negative?? Education Materials Below is the list of Educational Leaflet Providered with your Discharge Instructions. Valuables and Belongings I fully understand and agree that [facility] accepts no responsibility for all my personal property including clothing, toilet articles, radios, jewelry, dentures, hearing aids, rings, money, or any other property that is in my possession or is brought to me after admission. I understand certain valuables may be placed in a hospital safe for a short period of time. I understand that the hospital is not liable for loss or damage due to accident, fire, or other natural occurrence while said property is in the safe. I accept full responsibility for any personal property that I keep with me, and will not hold the hospital responsible in case of loss or disappearance. I acknowledge that i have been encouraged to send valuables and belongings home. ?? Possessions released to: at bedside with patient and FOB Date for Pt to Sign Valuables/Belongings: 11/22/22 00:39:00 ?? Other Discharge Information ? Pulmonary Rehab Status?? Pulmonary Rehab Discharge Status?? Respiratory Rate: 20 br/min ? Common Emergency Awareness Tips IS IT A STROKE? Act FAST and Check for these signs: FACE Does the face look uneven? ARM Does one arm drift down? SPEECH Does their speech sound strange? TIME Call at any sign of stroke ?? Heart Attack Signs Chest discomfort: Most heart attacks involve discomfort in the center of the chest and lasts more than a few minutes, or goes away and comes back. It can feel like uncomfortable pressure, squeezing, fullness or pain. Discomfort in upper body: Symptoms can include pain or discomfort in one or both arms, back, neck, jaw or stomach. Shortness of breath: With or without discomfort. Other signs: Breaking out in a cold sweat, nausea, or lightheaded. Remember, MINUTES DO MATTER. If you experience any of these heart attack warning signs, call to get immediate medical attention! ?? Smoking can increase your chances of developing chronic health problems and can cause harmful effects to other family members in your house. If you smoke, you are strongly encouraged to quit. Please call [facility] Health Link at [phone] or [phone] ([phone]) or log in to [email or web address] for referrals to smoking cessation programs. ?? The National Suicide Prevention Hotline is available 22/06 if you or someone you know needs to find areason to keep living. By calling 3-573-868-ibas (4585) you'll be connected to a skilled, trained counselor at a crisis center in your area. INPATIENT DISCHARGE INSTRUCTIONS SIGNATURE PAGE JORGE CORRAL Location:[facility] Registration Date and Time:11/21/2022 01:26 EST Primary Care Physician: Jonathon PEACE, [facility], I GUZMANJORGE ALVARADO, have received the above patient education materials/instructions and have verbalized understanding. If ambulance or transport services are being used I further acknowledge being given a choice of service. ?? If you need to contact me, please call me at this number: . Patient/Product Delivery Specialist Name: Patient/Product Delivery Specialist Signature: Relationship to Patient: Witness Name/Signature: Date: Tameka Novoa RN: PERFORM, MODIFY Event Display: Care Team Progress Note Authored Date: Patient: ??JORGE CORRAL ? Age:??22 Years?Sex:??Female?:??2000?? Subjective Jorge has been baby Godwin, aiming for every 2 hours but occasionally he takes a bitlonger between feeds. The left side is a bit sore since it was the first side he took. Sucking normally feels like pulls and she's able to latch independently. She's usually giving one side per feed. Has a breast pump at home from insurance. Assessment/Plan Jorge is a 22yo, mother of baby Godwin, born at 38w5d. She was assessed for byIBCLC on D1 vag, <24hrs post delivery. Mother attempting to latch baby at time of LC visit in cross-cradle. Mother letting baby self-latch. Taught cross-cradle hold, helped patient hold her breast and point nipple toward nose. With nipple to nose, baby opened wide and latched deeply, began suckling. Encouraged mother to latch this way andoffer both sides per breast. Taught hunger cues, educated on cluster feeding. Gave lanolin for sore nipple. Based on feeding sheet, baby has voided twice and stooled once in 15 hrs of life. ?[place] Expectations ?1-2 feeds/1??void?in first 24 hours, ? 8-10 feeds/ 4 voids/2-3 stool by day 4 when milk arrives, ? Feeds are not routine but balance out over 24 hours.? Sleepy behavior during the day ? Frustrated and cluster feeding throughout the night ?If spitting up amniotic fluid, spoon feeding can supplement??the feeds ? Skin to Skin helps engage and stimulate our to help them identify their own hunger ? Basic education discussed with??motherincluding:? Positioning infant for optimal feeding Asymmetric latch technique Frequent breast stimulation for initiation and maintenance of milk supply Coming to full milk volume in first 14 days Engorgement prevention and management Hand expression When to use a breast pump Consultation reference guide given to mother with contact information for services and ongoing support as needed.?? OB Summary : 1 . Baby A - Weight: 3.519 kg Baby A - Date, Time of : 11/21/22 19:43:00 Baby A - Gender: Male Baby A - Complications: Bruising EGA at Documented Date, Time: 38W 5D Weight at Delivery Baby A - Delivery Type: Vaginal, forcep assist Delivery Complications: None OB History History?(0,0,0,0)?No previous pregnancies history have been recorded Active Problem List Active Problem List Need for rubella vaccination: (Medical) Obese class I: (Medical) : (Obstetric) (02/23/22) : (Medical) Renal hypoplasia: (Medical) Rh negative: (Medical) Home Medications Aspirin: 81 mg = 1 tablet, By Mouth, Daily Hydrochlorothiazide: 25 mg, By Mouth, Daily Multivitamin, Multivitamin, : 1 tablet, By Mouth, Daily Medications Medications (9) Active SCHEDULED: (4) Lidocaine 1% Inj (20 mL) (Lidocaine 1% Inj) ??20 mL, Subcutaneous Injection, Once Measles / Mumps / Rubella Vaccine (Measles/Mumps/Rubella Virus Vaccine Inj) ??0.5 mL, Subcutaneous Injection, Once Polyethylene Glycol 17 Gm Powder (MiraLax Powder) ??17 Gm 1 pack/packet, By Mouth, Daily Senna Tablet (Senna 8.6 mg oral tablet) ??8.6 mg 1 tablet, By Mouth, Daily CONTINUOUS: (1) Lactated Ringers (1000 mL) Cont IV 1,000 mL (Lactated Ringers 1,000 mL) ??1,000 mL, IV Infusion, 125 mL/hr PRN: (4) Acetaminophen 325 mg Tablet (Acetaminophen Tablet) ??650 mg, By Mouth, Every 4 hours Calcium Carbonate 500 mg (Calcium 200 mg) Chewable Tablet (Tums 500 mg Tablet) ??1,000 mg 2 tablet,Chew, 3 times a day Docusate Sodium 100 mg Capsule (Docusate Sodium Capsule) ??100 mg 1 capsule, By Mouth, 2 times a day Ibuprofen 800 mg Tablet (Ibuprofen Tablet) ??800 mg, By Mouth, Every 8 hours Patient Care team information Care Team PersonnelName: Sena Holt MD Position: Reference Physician Member Role: PCP Address: Address: [address] Name: Shanell Smith RN Position: [facility] OB RN Member Role: OB RN Name: Belen Driscoll LPN Position: [facility] OB RN Member Role: OB RN Care Team Related PersonsName: SEBASTINA FRAUSTO Address: home [address] [place] [address] Name: JORGE CORRAL Address: [place] Address: home [address]
--- OUTSIDE RECORDS SUMMARY | 2022-12-08 21:22 | XMS_ITS | Continuity of Care Document ---
:2000 Author [facility] Address [address] [place] [id number]- Care Team Providers Name Role Phone Maris Cummings Primary Care Physician Encounter [facility] Date(s): 04/02/22 - 05/02/22 [facility] [address] [address] Allergies, Adverse Reactions, Alerts No Known Allergies Medications Hydrochlorothiazide = 25 mg, By Mouth, Daily, 0 Refills, Maintenance, 12/04/20 15:58:00 EST, Partial fill upon patient request if the prescription is for a schedule II opioid drug. Start Date: 12/04/20 Status: Ordered Problem List Condition Effective Dates Status Health Status Informant Headache(Confirmed) Active Social History Social History Type Response Smoking Status Never (less than 100 in life time) entered on: 04/22/22 Sex
--- OUTSIDE RECORDS SUMMARY | 2022-12-08 21:22 | XMS_ITS | Continuity of Care Document ---
:2001 Author Organization [facility] Emiliano MOLOME [facility] Address [address] [place] [id number]- Care Team Providers Name Role Phone Maris Cummings Primary Care Physician [id number] Date[facility] 04/22/22 - 04/29/22 [facility] Emiliano MOLOME [address], [address] [place] [id number] Attending Physician: Betzy Aden MD Referring Physician: Not on Staff, Referring MD Allergies, Adverse Reactions, Alerts No Known Allergies Medications Hydrochlorothiazide = 25 mg, By Mouth, Daily, 0 Refills, Maintenance, 12/04/20 15:58:00 EST, Partial fill upon patient request if the prescription is for a schedule II opioid drug. Start Date: 12/04/20 Status: Ordered Problem List Condition Effective Dates Status Health Status Informant Headache(Confirmed) Active Procedures Procedure Date Related Diagnosis Body Site Status [place] tooth 2019 Completed Vital Signs Most recent to oldest [Reference Range]: 1 Height 160 cm (04/22/22 5:37 PM) Weight 65.5 kg (04/22/22 5:37 PM) Body Mass Index [18.5-24.99] 25.59 *H* (04/22/22 5:37 PM) Dry Weight 65.5 kg (04/22/22 5:37 PM) Weight Obtained Via Standing scale (04/22/22 5:37 PM) Social History Social History Type Response Smoking Status Never (less than 100 in life time) entered on: 04/22/22 Sex
--- OUTSIDE RECORDS SUMMARY | 2022-12-08 21:22 | XMS_ITS | Continuity of Care Document ---
:2001 Author Organization [facility] [employer] Address [address] [place] [address], [address] [place] [address]- Care Team Providers Name Role Phone Maris Cummings Primary Care Physician [place] [facility](s): 05/21/22 - 05/28/22 [facility] [employer] [address], [address] [place] [id number] Attending Physician: Juliane Mejia MD Referring Physician: Praneeth PEACE, Paula Romero Allergies, Adverse Reactions, Alerts No Known Allergies Medications aspirin 81 mg oral delayed release tablet 162 mg, 2, tablet, By Mouth, Daily, # 90 tablet, Refills 3, Tot. Refills 3, Maintenance, 05/23/22 11:17:00 EDT, Route to Pharmacy Electronically, [facility]/pharmacy #[id number], Partial fill upon patient request if the prescription is for a schedule II opioid rashmi... Start Date: 05/23/22 Status: OrderedHydrochlorothiazide = 25 mg, By Mouth, Daily, 0 Refills, Maintenance, 12/04/20 15:58:00 EST, Partial fill upon patient request if the prescription is for a schedule II opioid drug. Start Date: 12/04/20 Status: OrderedPrenatal 1 0 Refills, Maintenance, 05/23/22 10:52:00 EDT, Partial fill upon patient request if the prescriptionis for a schedule II opioid drug. Start Date: 05/23/22 Status: OrderedPrenatal Multivitamins with Folic Acid 1 mg oral tablet 1 tablet, By Mouth, Daily, # 90 tablet, 3 Refills, Maintenance, 05/23/22 11:17:00 EDT, Tablet, [facility]/pharmacy #[id number], Partial fill upon patient request if the prescription is for a schedule II opioid drug., 1 tablet By Mouth Daily, 160, cm, 05/23/22 10:5... Start Date: 05/23/22 Status: Ordered Problem List Condition Effective Dates Status Health Status Informant Renal hypoplasia(Confirmed) Active Need for rubella Active vaccination(Confirmed) Rh negative(Confirmed) Active Social History Social History Type Response Smoking Status Never (less than 100 in life time) entered on: 04/22/22 Sex
--- OUTSIDE RECORDS SUMMARY | 2022-12-08 21:22 | XMS_ITS | Continuity of Care Document ---
:2001 Author Organization [facility] Address [address] [place] [address]- Care Team Providers Name Role Phone Jonathon PEACE, [facility] Primary Care Physician [place] [facility] [place]s): 09/15/22 - 10/15/[facility] [address] [place] [id number] Attending Physician: Bibi Quintana Admitting Physician: AdmBibi tello Referring Physician: Admtr, Wil8 Allergies, Adverse Reactions, Alerts No Known Allergies Immunizations Given and Recorded Vaccine Date Status Refusal Reason influenza virus vaccine, inactivated 09/29/22 Given tetanus/diphtheria/pertussis, acel(Tdap) 09/12/22 Recorde d Medications aspirin 81 mg oral tablet, chewable 81 mg, 1, tablet, By Mouth, Daily, # 90 tablet, Refills 2, Tot. Refills 2, Maintenance, 09/12/22 13:48:00 EDT, Route to Pharmacy Electronically, [facility]/pharmacy #[id number], Partial fill upon patient request ifthe prescription is for a schedule II opioid drug... Start Date: 09/12/22 Status: OrderedHydrochlorothiazide = 25 mg, By Mouth, [...] Refills, Maintenance, 05/23/22 11:17:00 EDT, Tablet, [id number], Partial fill upon patient request if the prescription is for a schedule II opioid drug., 1 tablet By Mouth Daily, 160, cm, 05/23/22 10:5... Start Date: 05/23/22 Status: Ordered Problem List Condition Confirmation Course Effective Dates Status Health Stat us Informant Renal hypoplasia Confirmed Active Obese class I Confirmed Active Confirmed Active Need for rubella Confirmed Active vaccination Rh negative Confirmed Active Social History Social History Type Response Smoking Status Never (less than 100 in life time) entered on: 04/22/22 Sex Patient Care team information Care Team PersonnelName: Sena Holt MD Position: Reference Physician Member Role: PCP Address: Address: [address] [place] [address]- Care Team Related PersonsName: RUKHSANA FRAUSTO Address: home [address] [place] [address]
--- OUTSIDE RECORDS SUMMARY | 2022-12-08 21:22 | XMS_ITS | Continuity of Care Document ---
:2001 Author Organization [facility] [employer] [facility] Address [address] [place] [address], [address] [place] [address]- Care Team Providers Name Role Phone Maris Cummings Primary Care Phys[id number]23[facility] - 05[facility]30/22 [facility] [employer] [address], [address] [place] [id number] Attending Physician: Praneeth PEACE, Paula Romero Referring Physician: Not on Staff, Referring MD Allergies, Adverse Reactions, Alerts No Known Allergies Medications aspirin 81 mg oral delayed release tablet 162 mg, 2, tablet, By Mouth, Daily, # 90 tablet, Refills 3, Tot. Refills 3, Maintenance, 05/23/22 11:17:00 EDT, Route to Pharmacy Electronically, [facility]/pharmacy #[id number], Partial fill upon patient request if [...] 3 Refills, Maintenance, 05/23/22 11:17:00 EDT, Tablet, [facility]/pharmacy #[id number], Partial fill upon patient request if the prescription is for a schedule II opioid drug., 1 tablet By Mouth Daily, 160, cm, 05/23/22 10:5... Start Date: 05/23/22 Status: Ordered Problem List Condition Effective Dates Status Health Status Informant Renal hypoplasia(Confirmed) Active Need for rubella Active vaccination(Confirmed) Rh negative(Confirmed) Active Vital Signs Most recent to oldest [Reference Range]: 1 Height 160 cm (05/23/22 10:51 AM) Weight 66.2 kg (05/23/22 10:51 AM) Body Mass Index [18.5-24.99] 25.86 *H* (05/23/22 10:51 AM) Blood Pressure [90-138/55-84 mm Hg] 114/65 mm Hg (05/23/22 10:51 AM) Blood pressure sites Arm, right (05/23/22 10:51 AM) Dry Weight 66.2 kg (05/23/22 10:51 AM) Weight Obtained Via Standing scale (05/23/22 10:51 AM) Dry Weight Obtained Via Standing scale (05/23/22 10:51 AM) Social History Social History Type Response Smoking Status Never (less than 100 in life time) entered on: 04/22/22 Sex
--- OUTSIDE RECORDS SUMMARY | 2022-12-08 21:22 | XMS_ITS | Continuity of Care Document ---
:2001 Author Organization [facility] Address [address] [place] [address]- Care Team Providers Name Role Phone Jonathon PEACE, [facility] Primary Care Physician [id number] Date[facility]s): 07/18/22 - 08/17/22 [facility] [employer] [facility] [address] [place] [address], [address] [place] [id number] Attending Physician: Bibi Quintana Admitting Physician: Bibi Quintana Referring Physician: AdmtrBibi Allergies, Adverse Reactions, Alerts No Known Allergies Medications aspirin 81 mg oral delayed release tablet 162 mg, 2, tablet, By Mouth, Daily, # 90 tablet, Refills 3, Tot. Refills 3, Maintenance, 06/20/22 8:51:00 EDT, Route to Pharmacy Electronically, [facility]/pharmacy #[id number], Partial fill upon patient request ifthe prescription is for a schedule II opioid drug... Start Date: 06/20/22 Status: OrderedHydrochlorothiazide = 25 mg, By Mouth, [...] 3 Refills, Maintenance, 05/23/22 11:17:00 EDT, Tablet, [facility]/pharmacy #[id number], Partial fill upon patient request if the prescription is for a schedule II opioid drug., 1 tablet By Mouth Daily, 160, cm, 05/23/22 10:5... Start Date: 05/23/22 Status: Ordered Problem List Condition Effective Dates Status Health Status Informant Renal hypoplasia(Confirmed) Active (Confirmed) Active Need for rubella Active vaccination(Confirmed) Rh negative(Confirmed) Active Social History Social History Type Response Smoking Status Never (less than 100 in life time) entered on: 04/22/22 Sex Care Team PersonnelName: Jonathon PEACE, [facility] Address: [address] [place] [address] [address] [place], [place] [address]
--- OUTSIDE RECORDS SUMMARY | 2022-12-08 21:22 | XMS_ITS | Continuity of Care Document ---
:2001 Author Organization [facility] Address [address] [place] [address]- Care Team Providers Name Role Phone Not on Staff, PCP Primary Care Physician Unavailable Encounter [facility] Date(s): 11/17/19 - 11/17/[address] [address] [facility] Attending Physician: Maryann Davis MD
--- OUTSIDE RECORDS SUMMARY | 2022-12-08 21:22 | XMS_ITS | Continuity of Care Document ---
:2001 Author Organization [facility] Address [address] [place] [address]- Care Team Providers Name Role Phone Maris Cummings Primary Care Physician Encounter [facility] Date(s): 10/06/20 - 10/06/[address] [address]- [phone] Encounter Diagnosis Acute otitis media (Final) - 10/06/20 Pharyngitis (Final) - 10/06/20 Discharge Disposition: A-D/C Home Attending Physician: Eliot Bland DO Admitting Physician: Eliot Bland DO Referring Physician: Not on Staff, Referring MD Medications amoxicillin 875 mg oral tablet 1 tablet = 875 mg, By Mouth, 2 times a day, for 7 days, # 14 tablet, 0 Refills, Acute 10/13/20 2:53:00 EST, 10/06/20 2:53:00 EST, Tablet, [id number], 158, cm, 10/06/20 2:22:00 EST, Height, 78.5, kg, 10/06/20 2:22:00 EST, Dry Weight Start Date: 10/06/20 Stop Date: 10/13/20 Status: Ordered Results Orders for Microbiology Reports Name Date Group A Strep Screen and Culture 10/06/20 Microbiology Reports TEST:Group A Strep Screen and Culture STATUS:Unauthenticated BODY SITE: SOURCE:THROAT COLLECTED DATE/TIME:10/06/20 2:47 AMGroup A Strep Screen and Culture SPECIMEN DESCRIPTION : THROAT SWAB SPECIAL REQUESTS : NONE DIRECT EXAM : RAPID GROUP A RESULT IS NEGATIVE, REFER TO CULTURE RESULT. REPORT STATUS : PRELIMINARY REPORT Vital Signs Most recent to oldest [Reference Range]: 1 2 Height 158 cm 158 cm (10/06/20 3:54 AM) (10/06/20 2:22 AM) Weight 78.5 kg 78.5 kg (10/06/20 3:54 AM) (10/06/20:22 AM) Oxygen Saturation [94-100 %] 99 % 98 % (10/06/20 3:54 AM) (10/06/20 2:22 AM) Pulse Rate [55-90 bpm] 97 bpm 95 bpm *H* *H* (10/06/20 3:54 AM) (10/06/20 2:22 AM) Body Mass Index [18.5-24.99] 31.45 *>HHI* (10/06/20 3:54 AM) Blood Pressure [71-110/30-71 mm Hg] 124/91 mm Hg 122/ 85 mm Hg *H* *H* (10/06/20 3:54 AM) (10/06/20 2:22 AM) Respiratory Rate [16-30 br/min] 18 br/min 18 br/mi n (10/06/20 3:54 AM) (10/06/20 2:22 AM) Temperature [96.8-100.4 DegF] 97.7 DegF 99.2 DegF (10/06/20 3:54 AM) (10/06/20:22 AM) Mode of Delivery (Oxygen) Room air Room air (10/06/20 3:54 AM) (10/06/20 2:22 AM) Blood pressure sites Arm, right Arm, left (10/06/20 3:54 AM) (10/06/20 2:22 AM) Temperature Route Oral Oral (10/06/20 3:54 AM) (10/06/20 2:22 AM) Dry Weight 78.5 kg 78.5 kg (10/06/20 3:54 AM) (10/06/20 2:22 AM) Weight Obtained Via Patient/family stated (10/06/20 2:22 AM) Dry Weight Obtained Via Patient/family stated (10/06/20:22 AM)
--- OUTSIDE RECORDS SUMMARY | 2022-12-08 21:22 | XMS_ITS | Continuity of Care Document ---
:2001 Author Organization [facility] Address [address] [place] [id number]- Care Team Providers Name Role Phone Maris Cmumings Primary Care Physician [id number] Date[facility] - 07[facility]25/[facility] [address] [place] [address], [address] [place] [id number] Attending Physician: Juliane Mejia MD Referring Physician: Mercedes Luo CNM Allergies, Adverse Reactions, Alerts No Known Allergies Medications aspirin 81 mg oral delayed release tablet 162 mg, 2, tablet, By Mouth, Daily, # 90 tablet, Refills 3, Tot. Refills 3, Maintenance, 06/20/22 8:51:00 EDT, Route to Pharmacy Electronically, [facility]/pharmacy #[id number], Partial fill upon patient request [...] 3 Refills, Maintenance, 05/23/22 11:17:00 EDT, Tablet, [facility]/pharmacy #[id number], Partial fill upon patient request [...] entered on: 04/22/22 Sex Care Team PersonnelName: Maris Cummings Address: [address] [place] [address] [address] [place] [address] [place], [place] [address]
[2022-12-08 21:25] LABS: Basophils Percent Auto 0.3 % (0-2); Eosinophils Absolute Auto 0.1 X10*3/uL (0.0-0.4); Hematocrit 41.7 % (37.0-47.0); Hemoglobin 14.2 g/dl (12.0-16.0); Imm Gran Abs Auto 0.02 X10*3/uL (0.00-0.03); Imm Gran Pct Auto 0.2 % (0.0-0.4); Lymphocytes Absolute Auto 0.8 X10*3/uL (1.2-4.9); Mean Corpuscular HGB Conc 34.1 g/dl (31.0-35.0); Mean Corpuscular Hemoglobin 29.6 pg (27.0-33.0); Mean Corpuscular Volume 86.9 fL (80.0-98.0); Mean Platelet Volume 9.7 fL (9.4-12.3); Monocytes Absolute Auto 0.4 X10*3/uL (0.1-1.2); Monocytes Percent Auto 4.3 % (2-11); Neutrophils Percent Auto 86.2 % (45-73); Platelet Count 288 X10*3/uL (160-400); Red Cell Distribution Width 11.9 % (11.0-16.0); White Blood Count 9.3 X10*3/uL (4.8-10.8)
[2022-12-08 21:57] LABS: Influenza A PCR NEGATIVE (Negative); Influenza B PCR NEGATIVE (Negative); Resp Syncy Virus RNA Qual PCR NEGATIVE (Negative); SARS COV2 PCR INHOUSE NEGATIVE (Negative)
[2022-12-08 22:49] VITALS: BP 113/65; PULSE 111; RESP 17; TEMP 38.4; O2SAT 98
[2022-12-08 23:15] LABS: Alanine Aminotransferase 37 U/L (0-31); Albumin Level 4.1 g/dL (3.5-5.0); Alkaline Phosphatase 121 U/L (39-117); Anion Gap 14 (12-20); Aspartate Amino Transferase 27 U/L (5-31); Bilirubin Total 0.7 mg/dL (0.0-1.0); Blood Urea Nitrogen 11 mg/dL (9-16); Calcium 8.7 mg/dL (8.4-10.2); Carbon Dioxide 23 mmol/L (22-29); Chloride 102 mmol/L (96-108); Creatinine Clr Calc Pharmacy 111.8; Estimated Glomerular Filt Rate > 60; Glucose Random 106 mg/dL (60-115); Potassium 4.4 mmol/L (3.3-5.1); Sodium 135 mmol/L (135-145); Total Protein 6.7 g/dL (6.5-8.0)
--- NOTE | 2022-12-08 23:27 | ED_ITS ---
HPI - Abdominal Pain General Chief Complaint: Headache Stated Complaint: Diarrhea/fever Time Seen by Provider: 12/08/22 23:18 Source: patient Mode of arrival: ambulatory Limitations: no limitations History of Present Illness HPI narrative: 22-year-old female came in for evaluation of nonbloody watery diarrhea since the early this morning, patient go to the bathroom for diarrhea at least once an hour, feeling generalized weakness, fever, feels abdominal cramps only when she has the diarrhea, no recent travel, no recent use of antibioti. Patient is breast feeding gave on 11/15 2022 by normal vaginal delivery patient has no sexual intercourse since then with no chance of being (hCG is slightly elevated which is consistent with recent given the history of no sexual intercourse by the patient)., Related Data Previous Rx's Medication Instructions Recorded cefuroxime axetil 250 mg tablet 250 mg PO BID #14 tabs 12/09/22 Allergies Allergy/AdvReac Type Severity Reaction Status Date / Time No Known Allergies Allergy Verified 06/11/22 22:01 Review of Systems Review of Systems All other systems are reviewed and are negative Constitutional: Reports as per HPI and Reports no additional constitutional complaints Eyes: Reports as per HPI and Reports no additional eye complaints Reports system reviewed and no additional complaints, except as documented Cardiovascular: Reports as per HPI and Reports no additional cardiovascular complaints Respiratory: Reports as per HPI and Reports no additional respiratory complaints Gastrointestinal: Reports as per HPI and Reports no additional gastrointestinal complaints Genitourinary: Reports no additional female genitourinary complaints Musculoskeletal: Reports no additional musculoskeletal complaints Skin/Breast: Reports system reviewed and no additional complaints, except as docu Psychiatric: Reports no additional psychiatric complaints Endocrine: Reports no additional endocrine complaints Hematologic/Lymphatic: Reports no additional hematologic/lymphatic complaints Allergic/Immunologic: Reports no additional allergic/immunologic complaints Reports system reviewed and no additional complaints, except as documented and Reports Abnormal speech present [facility] Social History Social History Advance Directives: No Advance Directives Information Provided: Yes Physical Exam ED Vital Signs: Vital Signs - 24 hr 12/08/22 21:01 12/08/22 22:49 12/09/22 00:49 Temperature 98.1 F 101.2 F H Pulse Rate 122 H 111 H 92 Respiratory Rate 18 17 Blood Pressure 113/69 113/65 101/58 L Pulse Oximetry 97 98 Oxygen Delivery Method Room Air Room Air 12/09/22 00:50 12/09/22 00:51 12/09/22 00:51 Temperature 100.0 F Pulse Rate 97 103 H Respiratory Rate Blood Pressure 102/65 98/62 Pulse Oximetry Oxygen Delivery Method BMI result Body Mass Index 28.3 Vital signs have been reviewed as appeared to be correct. Blood pressure normal. Heart rate normal. Respiration rate normal. Temperature normal. Oxygen saturation normal. Appearance: Alert. Oriented X3. No acute distress. Head: Normal external exam. Normocephalic. Atraumatic. No Neely signs noted. No raccoon eyes noted Eyes: PERRLA. EOMI. Conjunctiva and sclera normal. Eyelids normal. ENT: TM's Normal. Pharynx normal. Uvula midline. Moist mucous membranes. No trismus noted. No drooling noted. No muffled voice noted. Neck: Normal inspection. Neck supple. FROM. No adenopathy. Thyroid Normal. No meningeal signs. No neck mass noted. CVS: Normal heart rate and rhythm. Heart sound normal. No murmurs noted. Pulses normal throughout. Respiratory: No respiratory distress. Painless inspiration. Breath sounds normal. No wheezes/rales/rhonchi noted. Chest nontender. No accessory muscle usage noted or decreased air movement noted. Abdomen: Soft and nontender. Bowel sounds normal in all 4 quadrants. No distention noted. No organomegaly noted. No visible injury noted. Back: No CVA tenderness. Full range of motion noted. Skin: Skin warm and dry. Normal skin color. Normal skin turgor. No rashes/lesions/lacerations noted. Extremities: No lower extremity edema. Extremities exhibit normal range of motion. Extremities nontender. Neuro: Oriented X 3. Cranial nerve exam: II-XII are grossly intact No motor deficit. No sensory deficit. Reflexes normal. Course Course Course Narrative: 22-year-old female came in with diarrhea and and UTI, patient has 3 weeks ago and breast feeding. Otherwise patient was instructed to drink plenty of fluid, abdominal CT is not consistent with intra-abdominal acute pathology. Antibiotic will pass down to the baby via breast feeding in small amounts watch for any nausea or vomiting or diarrhea with the baby. Medical Decision Making Differential Diagnosis Differential Diagnoses: The differential diagnosis associated with the presentation includes (UTI, appendicitis, colitis, gastroenteritis.) Lab Data MDM Lab Attestation statement: I reviewed the patient's lab results. 12/08/22 21:15 12/08/22 22:55 Labs: Lab Results 12/08/22 12/08/22 12/08/22 Range/Units 21:15 21:15 22:55 WBC 9.3 (4.8-10.8) X10*3/uL RBC 4.80 (4.20-5.50) X10*6/uL Hgb 14.2 (12.0-16.0) g/dl Hct 41.7 (37.0-47.0) % MCV 86.9 (80.0-98.0) fL MCH 29.6 (27.0-33.0) pg MCHC 34.1 (31.0-35.0) g/dl RDW 11.9 (11.0-16.0) % Plt Count 288 (160-400) X10*3/uL MPV 9.7 (9.4-12.3) fL Immature Gran % (Auto) 0.2 (0.0-0.4) % Neut % (Auto) 86.2 H (45-73) % Lymph % (Auto) 8.0 L (20-40) % Boyd % (Auto) 4.3 (2-11) % Eos % (Auto) 1.0 (0-4) % Baso % (Auto) 0.3 (0-2) % Lymph # (Auto) 0.8 L (1.2-4.9) X10*3/uL Boyd # (Auto) 0.4 (0.1-1.2) X10*3/uL Eos # (Auto) 0.1 (0.0-0.4) X10*3/uL Baso # (Auto) 0.0 (0.0-0.2) X10*3/uL Abs Immat Gran (auto) 0.02 (0.00-0.03) X10*3/uL Absolute Neuts (auto) 8.0 (2.0-8.3) x10*3/uL Absolute Nucleated RBC 0.000 (0.0-0.012) X10*3/uL Nucleated RBC % (auto) 0.0 (0.0-0.2) /100WBC Sodium 135 (135-145) mmol/L Potassium 4.4 (3.3-5.1) mmol/L Chloride 102 (96-108) mmol/L Carbon Dioxide 23 (22-29) mmol/L Anion Gap 14 (12-20) BUN 11 (9-16) mg/dL Creatinine 0.76 (0.5-1.4) mg/dL Estim Creat Clear Calc 111.8 Estimated GFR > 60 Random Glucose 106 (60-115) mg/dL Calcium 8.7 D (8.4-10.2) mg/dL Total Bilirubin 0.7 (0.0-1.0) mg/dL AST 27 D (5-31) U/L ALT 37 H (0-31) U/L Alkaline Phosphatase 121 H D (39-117) U/L Total Protein 6.7 (6.5-8.0) g/dL Albumin 4.1 (3.5-5.0) g/dL Lipase 6 L (8-78) U/L Beta HCG, Quant 4 mIU/mL Urine Color Urine Appearance Urine pH (5.0-9.0) Ur Specific Dutton (1.005-1.025) Urine Protein (Neg-Trace) mg/dL Urine Glucose (UA) (Negative) mg/dL Urine Ketones (Negative) mg/dL Urine Blood (Negative) Urine Nitrite (Negative) Ur Leukocyte Esterase (Negative) Urine RBC (0-2) /HPF Urine WBC (0-5) /HPF Ur Squamous Epith Cells (0-2) /HPF Urine Bacteria (None Seen) Hyaline Casts (0-2) /LPF Influenza Type A (PCR) NEGATIVE (Negative) Influenza Type B (PCR) NEGATIVE (Negative) RSV RNA Qual (PCR) NEGATIVE (Negative) SARS-CoV-2 RNA (RT-PCR) NEGATIVE (Negative) 12/08/22 Range/Units 23:43 WBC (4.8-10.8) X10*3/uL RBC (4.20-5.50) X10*6/uL Hgb (12.0-16.0) g/dl Hct (37.0-47.0) % MCV (80.0-98.0) fL MCH (27.0-33.0) pg MCHC (31.0-35.0) g/dl RDW (11.0-16.0) % Plt Count (160-400) X10*3/uL MPV (9.4-12.3) fL Immature Gran % (Auto) (0.0-0.4) % Neut % (Auto) (45-73) % Lymph % (Auto) (20-40) % Boyd % (Auto) (2-11) % Eos % (Auto) (0-4) % Baso % (Auto) (0-2) % Lymph # (Auto) (1.2-4.9) X10*3/uL Boyd # (Auto) (0.1-1.2) X10*3/uL Eos # (Auto) (0.0-0.4) X10*3/uL Baso # (Auto) (0.0-0.2) X10*3/uL Abs Immat Gran (auto) (0.00-0.03) X10*3/uL Absolute Neuts (auto) (2.0-8.3) x10*3/uL Absolute Nucleated RBC (0.0-0.012) X10*3/uL Nucleated RBC % (auto) (0.0-0.2) /100WBC Sodium (135-145) mmol/L Potassium (3.3-5.1) mmol/L Chloride (96-108) mmol/L Carbon Dioxide (22-29) mmol/L Anion Gap (12-20) BUN (9-16) mg/dL Creatinine (0.5-1.4) mg/dL Estim Creat Clear Calc Estimated GFR Random Glucose (60-115) mg/dL Calcium (8.4-10.2) mg/dL Total Bilirubin (0.0-1.0) mg/dL AST (5-31) U/L ALT (0-31) U/L Alkaline Phosphatase (39-117) U/L Total Protein (6.5-8.0) g/dL Albumin (3.5-5.0) g/dL Lipase (8-78) U/L Beta HCG, Quant mIU/mL Urine Color Yellow Urine Appearance Clear Urine pH 5.5 (5.0-9.0) Ur Specific Dutton 1.015 (1.005-1.025) Urine Protein Negative (Neg-Trace) mg/dL Urine Glucose (UA) Negative (Negative) mg/dL Urine Ketones 15 (Negative) mg/dL Urine Blood Moderate (2+) H (Negative) Urine Nitrite Negative (Negative) Ur Leukocyte Esterase Moderate (2+) H (Negative) Urine RBC 3-5 H (0-2) /HPF Urine WBC 21-50 H (0-5) /HPF Ur Squamous Epith Cells 0-2 (0-2) /HPF Urine Bacteria None Seen (None Seen) Hyaline Casts 0-2 (0-2) /LPF Influenza Type A (PCR) (Negative) Influenza Type B (PCR) (Negative) RSV RNA Qual (PCR) (Negative) SARS-CoV-2 RNA (RT-PCR) (Negative) Independent Interpretation I performed an independent interpretation of an: CT Scan (Abdomen:1. A cause for the patient's acute right lower quadrant pain has not been found. The appendix is normal. 2. Incidental note made of mild splenomegaly and a 2 mm nonobstructing right renal calculus. ) Radiology Impression Discussion of test interpretation with radiology: I have reviewed the radiologist's reading. Medications Administered Discontinued Medications Generic Name Dose Route Start Last Admin Trade Name Freq PRN Reason Stop Dose Admin Acetaminophen 650 mg 12/08/22 23:25 12/08/22 23:57 Acetaminophen 325 Mg Tablet PO 12/08/22 23:26 650 mg ONCE ONE Administration Al Hydroxide/Mg Hydroxide 30 ml 12/08/22 23:25 12/08/22 23:58 Magnesium Hydrox/Alum Hydrox 30 Ml Oral.Susp PO 12/08/22 23:26 30 ml ONCE ONE Administration Famotidine 20 mg 12/08/22 23:25 12/08/22 23:57 Famotidine/Pf 20 Mg/2 Ml Vial IVPUSH 12/08/22 23:26 20 mg ONCE ONE Administration Sodium Chloride 1,000 mls @ 999 mls/hr 12/08/22 23:25 12/09/22 01:22 Ns IV 12/09/22 00:25 Infused .Q1H1M ONE Infusion Loperamide HCl 2 mg 12/08/22 23:25 12/08/22 23:57 Loperamide Hcl 2 Mg Capsule PO 12/08/22 23:26 2 mg ONCE ONE Administration Nitrofurantoin Macrocrystals 100 mg 12/09/22 00:49 12/09/22 01:21 Nitrofurantoin Monohyd/M-Cryst 100 Mg Capsule PO 12/09/22 00:50 100 mg ONCE ONE Administration Ondansetron HCl 4 mg 12/08/22 23:25 12/08/22 23:58 Ondansetron Hcl 4 Mg/2 Ml Vial IVPUSH 12/08/22 23:26 4 mg ONCE ONE Administration Discharge Plan Discharge Clinical Impression: UTI (urinary tract infection) Patient Disposition: Home, Self-Care Instructions: Urinary Tract Infection in Women (ED) Prescriptions: New cefuroxime axetil 250 mg tablet 250 mg PO BID Qty: 14 0RF Referrals: Physician,Unknown J [Primary Care Provider] -
[2022-12-08 23:34] LABS: Lipase 6 U/L (8-78)
[2022-12-08 23:40] LABS: HCG Quantitative 4 mIU/mL
[2022-12-08 23:56] LABS: Appearance Urine Clear; Color Urine Yellow; Glucose Urine UA Negative (Negative); Leukocyte Esterase Urine Moderate (2+) (Negative); Nitrite Urine Negative (Negative); PH 5.5 (5.0-9.0); Specific Gravity - Urine 1.015 (1.005-1.025); UMIC TRIGGER UACC YES; Urine Blood Moderate (2+) (Negative); Urine Ketones 15 mg/dL (Negative); Urine Protein Negative (Neg-Trace)
[2022-12-08] MEDS: 0.9 % Sodium Chloride 1,000 ML 999 ML IV (23:57)
[2022-12-08] MEDS: Acetaminophen 325 MG TABLET 650 MG PO (23:57)
[2022-12-08] MEDS: Famotidine/PF 20 MG/2 ML VIAL IVPUSH (23:57)
[2022-12-08] MEDS: Loperamide HCl 2 MG CAPSULE PO (23:57)
[2022-12-08] MEDS: ondansetron HCL 4 MG/2 ML VIAL IVPUSH (23:58)
[2022-12-08] MEDS: Magnesium Hydrox/Alum Hydrox 30 ML ORAL.SUSP PO (23:58)
[2022-12-09 00:10] LABS: Bacteria Urine None Seen (None Seen); Hyaline Casts Urine 0-2 /LPF (0-2); Squamous Epithelial Cell Urine 0-2 /HPF (0-2); UACC Culture Trigger YES; WBC Urine 21-50 /HPF (0-5)
[2022-12-09 00:49] VITALS: BP 101/58; PULSE 92
[2022-12-09 00:50] VITALS: BP 102/65; PULSE 97
[2022-12-09 00:51] VITALS: BP 98/62; PULSE 103; TEMP 37.8
[2022-12-09] MEDS: Nitrofurantoin Monohyd/M-Cryst 100 MG CAPSULE PO (01:21)
[2022-12-09 01:52] VITALS: TEMP 37.4
--- NOTE | 2022-12-09 01:53 | PC.NURSE ---
iv removed at time of discharge. pt reports 0/10 pain. pt ambulatory at discharge. pt provided with discharge packet. pt verbalized understanding of discharge plan.
== END 2022-12-09 01:54 | disposition home or self-care (01) ==
PROVIDERS: Emergency Provider Emergency Medicine
DX: N39.0 Urinary tract infection, site not specified (principal); R19.7 Diarrhea, unspecified; R10.31 Right lower quadrant pain; Z20.822 Contact with and (suspected) exposure to COVID-19; Z20.828 Contact with and (suspected) exposure to other viral communicable diseases
CPT/HCPCS: 0241U; 74176; 80053; 81001; 83690; 84702; 85025; 87086; 96361; 96374; 96375; 99284; 99285; J2405

== ENCOUNTER 2025-06-05 08:57 | Outpatient (AMB) | payer OTHER, SELFPAY ==
[2025-06-05 08:59] VITALS: BP 112/68; PULSE 86; TEMP 36.1; O2SAT 98; BMI 26.9
--- NOTE | 2025-06-05 08:59 | MHC.PC.OV ---
Vital Signs 06/05/25 08:59 Height 5 ft 3 in Weight 152 lb 2 oz BMI 26.9 BP 112/68 Blood Pressure Location Lt brachial Position Sitting Pulse 86 Pulse Source Pulse Oximeter Temp 97.0 F Temp Source Temporal Artery Scan Pulse Oximetry (%) 98 Oxygen Delivery Method Room Air Intake Visit Reasons: Annual Exam Allergies No Known Allergies Allergy (Verified 06/05/25 09:12) Medication List - Last Reconciled 06/05/25 by Felicita Shearer PA-C No Known Home Meds Tobacco use date assessed: 06/05/25 Dental Screening Dental Screen Date: 06/05/25 Did you have a dental visit in the last 12 months?: Yes Did you have a dental problem in the last 6 months where you did not have access to dental care?: No Was dental information given to patient?: Patient has dentist HPI Annual Exam HPI Details 24-year-old female with past medical history of irregular menses, renal disease, acne, PCOS last seen 05/2024 coming in for annual exam. Prresenting with a wellness examination and follow-up on existing conditions such as PCOS and kidney anatomical variation. The patient was previously diagnosed with PCOS and is seeking follow-up with endocrinology for management. The referral for endocrinology had , necessitating a new referral. 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 She has not seen a forensic psychologist in over a year, and there is a plan to request previous notes to determine future management. The patient reports frequent tonsillitis and was previously advised about potential tonsillectomy, but it was not pursued. The patient has lost 38 pounds since the last visit through intentional weight loss efforts, including some exercise. Pap smear: patient missed [facility] visit last year - reminded to reach out to make appt. Vaccines: TDaP UTD 2021 eye doctor: yearly and wears corrective lenses [facility] Medical History Obesity (BMI 30-39.9) PCOS (polycystic ovarian syndrome) (~12/27/20) Chronic pyelonephritis Renal hypoplasia Suicidal ideations Asthma Renal disease Surgical History No pertinent past surgical history Family History Father No problems noted. Mother No problems noted. Social History Housing: Apartment Alcohol intake: current Alcohol intake frequency: does not drink Patient Tobacco Use Status: Never used Tobacco e-Cigarette/Vaping Use: Currently Using Substance Use Type: Marijuana service: No Current occupational status: unemployed Gender identity: Female Cognitive needs: No Hearing needs: No Vision needs: No Female Reproductive History Menstrual Age of Menarche: 13 Questionnaire PHQ-9 Over the last 2 weeks, how often have you been bothered by any of the following problems? 1. Little interest or pleasure in doing things: not at all 2. Feeling down, depressed, or hopeless: not at all 3. Trouble falling or staying asleep, or sleeping too much: not at all 4. Feeling tired or having little energy: not at all 5. Poor appetite or overeating: not at all 6. Feeling bad about yourself - or that you are a failure or have let yourself or your family down: not at all 7. Trouble concentrating on things, such as reading the newspaper or watching television: not at all 8. Moving or speaking so slowly that other people could have noticed. Or the opposite - being so fidgety or restless that you have been moving around a lot more than usual: not at all 9. Thoughts that you would be better off or of hurting yourself in some way: not at all Total score: 0 Depression Screening Interpretation: Negative Depression Screening Done: Yes 24882 - PHQ-9 Billing: Yes Source: Developed by Drs. Abdifatah Gordillo, Carolyn Serna, Eddie Latif and colleagues, with an educational sandra from [employer]. Thrive Questionnaire Date Thrive assessed: 06/05/25 I am a: Patient What is your living situation today?: I have a steady place to live Within the past 12 months, did the food you bought not last and you didn't have the money to get more?: Never true Within the past 12 months, did you worry whether your food would run out before you got money to buy more?: Never true Do you have trouble paying for medicines?: No Do you have trouble getting transportation to medical appointments?: No Do you have trouble paying your heating and electricity bill?: No Do you have trouble taking care of your child, family member or friend?: No Do you have trouble with day-to-day activities such as bathing, preparing meals, shopping, managing finances, etc.?: No Are you currently unemployed and looking for a job?: I choose not to answer this question Are you interested in more education?: I choose not to answer this question Please select the resources that you would like help with: None Currently or been in a relationship where the following occur: I choose not to answer THRIVE Score: 0 AUDIT C Alcohol Use Questionnaire (AUDIT-C) 1. How often do you have a drink containing alcohol?: Monthly or less 2. How many drinks containing alcohol do you have on a typical day when you are drinking?: 1 or 2 3. How often do you have six or more drinks on one occasion?: Never Total Score: 1 ASIA-7 AMB Questionnaire ASIA-7 Date ASIA - 7 assessed: 06/05/25 Feeling nervous, anxious, or on edge: 0 = Not at all Not being able to stop or control worryin = Not at all Worrying too much about different things: 0 = Not at all Trouble relaxin = Not at all Being so restless that it is hard to sit still: 0 = Not at all Becoming easily annoyed or irritable: 0 = Not at all Feeling afraid as if something awful might happen: 0 = Not at all Total ASIA-7 score (0-4 normal; 5-9 mild; 10-14 moderate; 15-21 severe): 0 Source: Developed by Drs. Abdifatah Gordillo, Carolyn Serna, Eddie Latif and colleagues, with an educational sandra from [employer]. ASIA-7 Assessment Billing ASIA-7 Assessment Tool: ASIA-7 Assessment 19405 Review of Systems Const Denies body aches, Denies fatigue, Denies fever(s), Denies frequent falls, Denies headache(s) and Denies weakness Eyes Reports no additional complaints and Denies change in vision ENT Denies dysphagia, Denies dizziness, Denies facial pain, Denies headache(s), Denies nasal congestion and Denies odynophagia Card Denies chest pain, Denies syncope, Denies irregular heart rhythm, Denies leg edema, Denies lightheadedness and Denies dyspnea Resp Denies cough and Denies dyspnea GI Denies abdominal pain, Denies constipation, Denies dysphagia, Denies dyspepsia, Denies diarrhea, Denies nausea, Denies odynophagia and Denies vomiting Denies urinary frequency, Denies dysuria, Denies urinary hesitancy and Denies urinary urgency Musc Denies back pain and Denies myalgias Skin/Breast Reports system reviewed and no additional complaints, except as documented Neuro Denies dizziness, Denies syncope, Denies frequent falls, Denies headache(s) and Denies weakness Psych Reports no additional complaints Endo Denies fatigue Physical exam (Primary Care) Vital Signs: Last Vital Signs Temp 97.0 F 06/05/25 08:59 Pulse 86 06/05/25 08:59 BP 112/68 06/05/25 08:59 Pulse Ox 98 06/05/25 08:59 Oxygen Delivery Method Room Air 06/05/25 08:59 BMI result Body Mass Index 26.9 Tobacco/Smoking Status: Tobacco use Status Tobacco use date assessed 06/05/25 06/05/25 09:04 Patient Tobacco Use Status Never used Tobacco 06/05/25 09:04 e-Cigarette/Vaping Use Currently Using 06/05/25 09:04 PHQ-9: PHQ-9 Score PHQ-9: Total score 0 06/05/25 09:05 Depression Screening Interpretation: Negative Thrive Assessment: Date of Thrive Assessment Date Thrive assessed 06/05/25 06/05/25 09:04 Currently or been in a relationship where the following occur: I choose not to answer Const General: cooperative, healthy appearing, comfortable and no acute distress Orientation/consciousness: patient oriented x3 HENMT Head: Yes normocephalic Ears: hearing grossly normal bilaterally, external ears normal, TM's normal bilaterally and EAC's normal General nose exam: Normal external nose present Face and sinus: Yes normal facial exam and Yes sinuses nontender Mouth: Normal oral and palatal mucosa present and tongue normal Throat: Yes posterior oropharynx normal and Yes tonsils normal (Enlarged 2+) Eyes General: appearance normal, both eyes and all related structures Conjunctivae: conjunctivae normal Pupils: Equal, round and reactive pupils present EOM: EOMs intact bilaterally and No Nystagmus present Neck Neck: Yes normal visual inspection, Yes full ROM and Yes no lymphadenopathy Chest Chest palpation & inspection: normal inspection of the chest Resp Effort & Inspection: normal respiratory effort Auscultation: clear to auscultation bilaterally, no crackles, no rales, no rhonchi, no wheezes and breath sounds present Cardio Rate: regular rate Rhythm: regular rhythm Peripheral pulses: radial pulses present and dorsalis pedis present GI Inspection: Yes normal to inspection and No Abdominal wall edema Palpation (GI): Soft to palpation, not firm and nontender Auscultation: normal bowel sounds Rectal Exam - Female: deferred General: Yes no CVA tenderness Back/Spine/Pelvis Back: no CVA tenderness Skin General skin exam: no rashes or lesions noted Neuro General: patient oriented x3 Cranial nerves: Yes Equal, round and reactive pupils present, Yes Midline tongue present, Yes Ability to bilaterally elevate shoulders present and No Nystagmus present Gait exam (Neuro): Normal gait present Extrem General: Yes normal to inspection, Yes full ROM, No no pedal edema and No edema Psych Speech and movement: Normal speech and movement present Affect: normal affect Insight: Good insight present (Psych) Judgement: Good judgement present (Psych) Coding Level of Care Code Est Pt Prev Care 18-39y(39397) Diagnoses Annual physical exam Z00.00 PCOS (polycystic ovarian syndrome) E28.2 Renal disease N28.9 Irregular menses N92.6 Overweight E66.3 Additional Codes ASIA-7 Assessment Billing - ASIA-7 Assessment Tool: ASIA-7 Assessment 29411 ([id number]) PHQ-9 - 34489 - PHQ-9 Billing: Yes ([id number]) Assessment & Plan Assessment & Plan (1) Annual physical exam: Code(s): Z00.00 - Encounter for general adult medical examination without abnormal findings Category: Medical Plan: Patient is up-to-date on all recommended routine screenings and vaccinations for her age. She is overdue for Pap smear and referral was placed to gynecology last year however patient missed her new patient appointment. Discussed with the patient reaching out to reschedule this visit. Ordered for updated blood work (2) PCOS (polycystic ovarian syndrome): Onset Date: ~12/27/20 Code(s): E28.2 - Polycystic ovarian syndrome Category: Medical Plan: Referral was placed to endocrinology several visits ago however patient did not make appointment. [place] [facility] [place] Also recommended following up with her earth science professor and reaching out to reschedule appointment. (3) Renal disease: Comment: Non obstructive reflux, a/w chronic pyelonephritis 43% function right kidney, 57% left kidney [employer], Dr. Amadeo Davis Code(s): N28.9 - Disorder of kidney and ureter, unspecified Category: Medical Plan: Plan to obtain notes from previous forensic psychologist. She may need new referral to Nephrology. Continue to monitor kidney function last results were within normal limits. (4) Irregular menses: Code(s): N92.6 - Irregular menstruation, unspecified Category: Medical Plan: Resolved at this time. Recommend following up with gynecology (5) Overweight: Code(s): E66.3 - Overweight Category: Medical Plan: Healthy diet and regular exercise is encouraged. Noted 38 lb weight loss since last visit. Plan The patient will receive a referral to endocrinology for management of Polycystic Ovary Syndrome PCOS), as the previous referral had . A request for previous nephrology notes will be made to assess the need for further follow-up regarding the kidney anatomical variation. The patient will undergo tuberculosis screening and STD testing as part of routine health maintenance and school requirements. Vaccination records will be updated and provided to the patient. The patient is advised to continue with regular eye examinations and to maintain her current exercise regimen to support weight management. This note was constructed using voice recognition software. While every effort has been made to ensure accuracy and armature rewinder, still areas may have been included sometimes these areas may affect the content or meeting of the given symptoms. Total time spent caring for the patient today was 30 minutes. This includes time spent before the visit reviewing the chart, time spent during the visit, and time spent after the visit and documentation. Patient was informed and verbally consented to the use of an ambient scribe for clinic note documentation during this visit. Orders: Orders Free T4 (Free Thyroxine) Today E66.9 - Obesity, unspecified, Z00.00 - Encounter for general adult medical examination without abnormal findings Vitamin D 25-OH Total Today E66.9 - Obesity, unspecified, Z00.00 - Encounter for general adult medical examination without abnormal findings Comprehensive Met. Panel Today E66.9 - Obesity, unspecified, Z00.00 - Encounter for general adult medical examination without abnormal findings Complete Blood Count Auto Diff Today E66.9 - Obesity, unspecified, Z00.00 - Encounter for general adult medical examination without abnormal findings TSH reflex Free T4 Today E66.9 - Obesity, unspecified, Z00.00 - Encounter for general adult medical examination without abnormal findings Vitamin B12 and Folate Today E66.9 - Obesity, unspecified, Z13.21 - Encounter for screening for nutritional disorder T Spot TB Today Z00.00 - Encounter for general adult medical examination without abnormal findings CT NG by PCR Vag/Cerv Today Z00.00 - Encounter for general adult medical examination without abnormal findings Referrals Endocrinology Referral E28.2 - Polycystic ovarian syndrome, R79.89 - Other specified abnormal findings of blood chemistry Medications: Discontinued cefuroxime axetil Discontinued Reason: Patient no longer taking 250 mg PO BID 14 tabs 0RF
--- OUTSIDE RECORDS SUMMARY | 2025-06-05 09:16 | XMS_ITS | Clinical Summary ---
Author Organization [facility] Address [address] [facility] [address] [place] [address] Phone Care Team Providers Care Flatbed Press Operator Name Role Phone Maris Serna PA-C Primary Care Provider [phone]- [phone] Allergies No known active allergies Medications hydroCHLOROthia zide 25 MG tablet Take 1 tablet by mouth in the morning and 1 tablet in the evening. 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/11/2022 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 Low back pain 08/11/2022 Non-obstructive reflux-associated chronic pyelon ephritis 08/11/2022 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 04/04/2022 Social History Tobacco Use Types Packs/Day Years Used Date Smoking Tobacco: Never Smokeless Tobacco: Never Tobacco Cessation:Counseling Given: Not Answered Alcohol Use Standard Drinks/Week Comments No 0 (1 standard drink = 0.6 oz pur e alcohol) Comments Unknown Sex and Gender Information Value Date Recorded Sex Assigned at Not on file Legal Sex Female 4:51 PM EST Gender Identity Not on file Sexual Orientation Not on file Last Filed Vital Signs Vital Sign Reading Time Taken Comments Blood Pressure 125/70 11/27/2022 3:20 PM EST Pulse 69 11/27/2022 3:20 PM EST Temperature - - Respiratory Rate - - Oxygen Saturation 99% 11/27/2022 3:20 PM EST Inhaled Oxygen Concentration - - Weight 80.3 kg (177 lb) 11/27/2022 3:20 PM EST Height 160 cm (5' 3 ) 12/22/2019 12:00 PM EST Body Mass Index 31.35 12/22/2019 12:00 PM EST Plan of Treatment Health Maintenance Due Date Last Done Comments Hepatitis B Vaccine (1 of 3 - 19+ 3-dose series) 11/22 Pneumococcal Vaccine: Peds ( 0 to 5 Years) and At-Risk Patients (6 to 49 Years) (1 of 2 - PCV) 2020 Influenza Vaccine (#1) 2025 Insurance Medicaid Care Teams Flatbed Press Operator Relationship Specialty Start Date End Date Maris Serna PA-C [address] [place] [id number] PCP - General 04/03/22
== END 2025-06-05 09:28 | disposition home or self-care (01) ==
LOC: HO.HMCH 08:58
DX: Z00.00 Encounter for general adult medical examination without abnormal findings (principal); E28.2 Polycystic ovarian syndrome; N28.9 Disorder of kidney and ureter, unspecified; N92.6 Irregular menstruation, unspecified; E66.3 Overweight

== ENCOUNTER 2025-06-05 08:57 | Outpatient (REF) | payer OTHER, SELFPAY ==
[2025-06-05 10:13] LABS: MANUAL DIFF FLAG NO
[2025-06-05 10:54] LABS: Hematocrit 43.6 % (37.0-47.0); Hemoglobin 14.9 g/dl (12.0-16.0); Imm Gran Abs Auto 0.02 X10*3/uL (0.00-0.03); Imm Gran Pct Auto 0.3 % (0.0-0.4); Lymphocytes Absolute Auto 3.2 X10*3/uL (1.2-4.9); Mean Corpuscular HGB Conc 34.2 g/dl (31.0-35.0); Mean Corpuscular Hemoglobin 30.0 pg (27.0-33.0); Mean Corpuscular Volume 87.7 fL (80.0-98.0); NRBC Abs Auto 0.000 X10*3/uL (0.0-0.012); NRBC Pct Auto 0.0 /100WBC (0.0-0.2); Platelet Count 260 X10*3/uL (160-400); Red Blood Count 4.97 X10*6/uL (4.20-5.50); White Blood Count 7.6 X10*3/uL (4.8-10.8)
[2025-06-05 11:57] LABS: Folate 13.0 ng/mL (> or = 4.0); Vitamin B12 531 pg/mL (200-900)
[2025-06-05 12:02] LABS: Free T4 (Free Thyroxine) 1.00 ng/dL (0.71-1.85)
[2025-06-05 12:27] LABS: Anion Gap 12 (12-20)
[2025-06-05 12:31] LABS: Alanine Aminotransferase 26 U/L (0-31); Albumin Level 4.7 g/dL (3.5-5.0); Alkaline Phosphatase 61 U/L (39-117); Aspartate Amino Transferase 21 U/L (5-31); Blood Urea Nitrogen 11 mg/dL (9-16); Calcium 9.1 mg/dL (8.4-10.2); Carbon Dioxide 25 mmol/L (22-29); Chloride 108 mmol/L (96-108); Estimated Glomerular Filt Rate > 60; Potassium 4.1 mmol/L (3.3-5.1); Sodium 141 mmol/L (135-145); Total Protein 7.2 g/dL (6.5-8.0)
== END 2025-06-05 08:58 | disposition home or self-care (01) ==
LOC: HO.LAB 08:57
DX: Z00.00 Encounter for general adult medical examination without abnormal findings (principal); E28.2 Polycystic ovarian syndrome; N28.9 Disorder of kidney and ureter, unspecified; N92.6 Irregular menstruation, unspecified; E66.9 Obesity, unspecified; Z68.26 Body mass index [BMI] 26.0-26.9, adult; Z13.21 Encounter for screening for nutritional disorder; Z13.30 Encounter for screening examination for mental health and behavioral disorders, unspecified; Z13.31 Encounter for screening for depression
CPT/HCPCS: 36415; 80053; 82306; 82607; 82746; 84439; 84443; 85025; 86481; 96127; 99395

== ENCOUNTER 2025-06-14 11:19 | Outpatient (REF) | payer OTHER, SELFPAY ==
--- OUTSIDE RECORDS SUMMARY | 2025-06-14 12:12 | XMS_ITS | Clinical Summary ---
Author Organization [facility] Address [address] [facility] [address] [place] [address] Phone Care Team Providers Care Track Moving Machine Operator Name Role Phone Maris Serna PA-C Primary Care Provider [phone]- [phone] Allergies No known active allergies Medications hydroCHLOROthia [...] Vaccine (#1) 2025 Insurance Medicaid Care Teams Track Moving Machine Operator Relationship Specialty Start Date End Date Maris Serna PA-C [address] [place] [id number] PCP - General 04/03/22
[2025-06-17 08:27] LABS: TS Negative Control Passed; TS Panel A 0; TS Panel B 1; TS Positive Control Passed; TSpotTB Negative (Negative)
== END 2025-06-14 11:20 | disposition home or self-care (01) ==
LOC: HO.LAB 11:19
DX: Z00.00 Encounter for general adult medical examination without abnormal findings (principal)
CPT/HCPCS: 36415; 86481

== ENCOUNTER 2025-11-28 06:01 | Emergency (ER) | payer OTHER, SELFPAY ==
--- NOTE | ~2025-11-28 | US_ITS ---
EXAMINATION: US LESS THAN 14 WEEKS HISTORY: ABD PAIN - 14W PREG COMPARISON: There are no prior studies available for comparison. FINDINGS: A limited ultrasound was performed. A single intrauterine gestation is identified. The heart rate is 153 bpm. movement is seen throughout the examination. Cervix is closed measuring 4.0 cm in length. The placenta is anterior and is unremarkable in appearance. US/US OB <= 14 weeks fetus IMPRESSION: Single live intrauterine gestation. No placental abnormality is identified. Electronically signed by: Abdifatah Appiah MD 11/28/2025 10:05 AM MEGHANN
[2025-11-28 07:31] LABS: MANUAL DIFF FLAG NO
[2025-11-28 07:36] LABS: Hematocrit 39.4 % (37.0-47.0); Hemoglobin 13.7 g/dl (12.0-16.0); Imm Gran Abs Auto 0.03 X10*3/uL (0.00-0.03); Imm Gran Pct Auto 0.4 % (0.0-0.4); Lymphocytes Absolute Auto 0.8 X10*3/uL (1.2-4.9); Mean Corpuscular HGB Conc 34.8 g/dl (31.0-35.0); Mean Corpuscular Hemoglobin 30.1 pg (27.0-33.0); Mean Corpuscular Volume 86.6 fL (80.0-98.0); NRBC Abs Auto 0.000 X10*3/uL (0.0-0.012); NRBC Pct Auto 0.0 /100WBC (0.0-0.2); Platelet Count 206 X10*3/uL (160-400); Red Blood Count 4.55 X10*6/uL (4.20-5.50); White Blood Count 8.4 X10*3/uL (4.8-10.8)
[2025-11-28 07:52] LABS: Anion Gap 13 (12-20); Carbon Dioxide 22 mmol/L (22-29); Chloride 104 mmol/L (96-108); Potassium 4.3 mmol/L (3.3-5.1); Sodium 135 mmol/L (135-145)
--- OUTSIDE RECORDS SUMMARY | 2025-11-28 08:53 | XMS_ITS | Clinical Summary ---
Author Organization [facility] Address [address] [facility] [address] [place] [address] Phone Care Team Providers Care Hydrologist Name Role Phone Maris Serna PA-C Primary Care Provider [phone]- [phone] Allergies No known active allergies Medications hydroCHLOROthia [...] 2020 Influenza Vaccine (#1) 2025 [place] [address] [place] [address] Care Teams Hydrologist Relationship Specialty Start Date End Date Maris Serna PA-C [address] [place] [id number] PCP - General 04/03/22
[2025-11-28 09:20] LABS: Appearance Urine Cloudy; Glucose Urine UA Negative (Negative); PH 8.0 (5.0-9.0); Specific Gravity - Urine 1.020 (1.005-1.025); UMIC TRIGGER UACC YES
[2025-11-28 09:50] LABS: Resp Syncy Virus RNA Qual PCR NEGATIVE (Negative); SARS COV2 PCR INHOUSE NEGATIVE (Negative)
[2025-11-28 10:11] LABS: Alanine Aminotransferase 16 U/L (0-31); Albumin Level 4.1 g/dL (3.5-5.0); Alkaline Phosphatase 44 U/L (39-117); Aspartate Amino Transferase 19 U/L (5-31); Blood Urea Nitrogen 6 mg/dL (9-16); Calcium 9.0 mg/dL (8.4-10.2); Estimated Glomerular Filt Rate > 60; Total Protein 6.9 g/dL (6.5-8.0)
--- NOTE | 2025-11-28 10:14 | ED_ITS ---
HPI - URI/Sore Throat General Stated Complaint: Flu Like Time Seen by Provider: 11/28/25 08:42 Source: patient Mode of arrival: ambulatory Limitations: no limitations History of Present Illness ED Provider: MIKEL CM Narrative: [age] old female with past medical history of PCOS she is with her care here at [facility] for approximately 13 week . She states she developed sore throat, headache, body aches, chills x1 day. She has not had any nausea vomiting or diarrhea. She has not taken any [id number] medications. She denies any recent travel or sick contacts. She notes this morning she developed lower abdominal discomfort and cramping the your urinary symptoms and she has not had any spotting or bleeding. 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 MD elicited complaint: cough, sore throat, rhinorrhea and other (Body ache) Onset (ago): day(s) (1) Consistency: constant Severity: moderate Description of mucous: clear Able to tolerate fluids by mouth: Yes Exacerbating factors: swallowing and exertion Relieving factors: nothing Associated symptoms: chills, myalgias, headache, rhinorrhea, sore throat and abdominal pain Treatments prior to arrival: none Related Data Home Medications ?Medication ?Instructions ?Recorded ?Confirmed No Known Home Meds 06/01/24 06/05/25 Allergies Allergy/AdvReac Type Severity Reaction Status Date / Time No Known Allergies Allergy Verified 06/05/25 09:12 Review of Systems 2 Review of Systems: Yes all other systems are reviewed and are negative [facility] Past Medical History Attestation statement: The following information was validated with the patient. Source: old records reviewed Medical History Obesity (BMI 30-39.9) PCOS (polycystic ovarian syndrome) (~12/27/20) Chronic pyelonephritis Renal hypoplasia Suicidal ideations Asthma Renal disease Surgical History No pertinent past surgical history Family History Family History Father No problems noted. Mother No problems noted. Social History Social History Housing: Apartment Alcohol intake: current Alcohol intake frequency: does not drink Patient Tobacco Use Status: Never used Tobacco e-Cigarette/Vaping Use: Currently Using Substance Use Type: Marijuana Advance Directives: No Advance Directives Information Provided: Yes service: No Current occupational status: unemployed Gender identity: Female Cognitive needs: No Hearing needs: No Vision needs: No Physical Exam 2 Vital Signs: Appearance: Alert. Oriented X3. No acute distress. Eyes: Pupils equal, round and reactive to light. ENT: Pharynx uvula is midline there is moderate erythema and mild tonsillar swelling but no exudates Neck: Normal inspection. Neck supple. CVS: Normal heart rate and rhythm. Pulses normal. Respiratory: No respiratory distress. Breath sounds normal. Abdomen: Soft and nontender. Skin: Skin warm and dry. Normal skin color. Normal skin turgor. Extremities: No lower extremity edema. No calf ttp Neuro: Oriented X 3. No motor deficit. No sensory deficit. CN2-12 intact Course Course Course Narrative: 10:38 AM 11/28/2025 (MIKEL DO): Patient eating and feels much better Medications Administered Generic Name Dose Route Start Last Admin Trade Name Freq PRN Reason Stop Dose Admin Lactated Ringer's 1,000 mls @ 999 mls/hr 11/28/25 10:16 11/28/25 10:24 Lr IV 11/28/25 11:16 999 mls/hr .Q1H1M ONE Administration Medical Decision Making Medical Decision Making [facility] Narrative: 25-year-old female with past medical history of PCOS she is now here with viral syndrome and lower abdominal cramping. She has no vaginal bleeding or spotting. She has no urinary symptoms. She has overall viral parents she is going to need basic labs, ultrasound of the fetus given the lower abdominal pain though her abdomen is benign. She will get a viral panel, strep swab are going to give her gentle fluids and p.o. Tylenol anticipate DC home Differential Diagnosis Differential Diagnoses: The differential diagnosis associated with the presentation includes Strep throat, viral syndrome, Admission/Observation Consideration of admission/observation: Escalation of care including admission/observation considered Overall nontoxic well-appearing able to tolerate p.o. she can be managed as an outpatient Lab Data [facility] Lab Attestation statement: I reviewed the patient's lab results. 11/28/25 06:18 11/28/25 06:18 Labs: Lab Results 11/28/25 11/28/25 11/28/25 Range/Units 06:18 08:59 10:22 WBC 8.4 (4.8-10.8) X10*3/uL RBC 4.55 (4.20-5.50) X10*6/uL Hgb 13.7 (12.0-16.0) g/dl Hct 39.4 (37.0-47.0) % MCV 86.6 (80.0-98.0) fL MCH 30.1 (27.0-33.0) pg MCHC 34.8 (31.0-35.0) g/dl RDW 12.3 (11.0-16.0) % Plt Count 206 (160-400) X10*3/uL MPV 10.3 (9.4-12.3) fL Immature Gran % (Auto) 0.4 (0.0-0.4) % Neut % (Auto) 84.5 H (45-73) % Lymph % (Auto) 9.8 L (20-40) % Ransom % (Auto) 4.4 (2-11) % Eos % (Auto) 0.7 (0-4) % Baso % (Auto) 0.2 (0-2) % Lymph # (Auto) 0.8 L (1.2-4.9) X10*3/uL Ransom # (Auto) 0.4 (0.1-1.2) X10*3/uL Eos # (Auto) 0.1 (0.0-0.4) X10*3/uL Baso # (Auto) 0.0 (0.0-0.2) X10*3/uL Abs Immat Gran (auto) 0.03 (0.00-0.03) X10*3/uL Absolute Neuts (auto) 7.1 (2.0-8.3) x10*3/uL Absolute Nucleated RBC 0.000 (0.0-0.012) X10*3/uL Nucleated RBC % (auto) 0.0 (0.0-0.2) /100WBC Sodium 135 (135-145) mmol/L Potassium 4.3 (3.3-5.1) mmol/L Chloride 104 (96-108) mmol/L Carbon Dioxide 22 (22-29) mmol/L Anion Gap 13 (12-20) BUN 6 L (9-16) mg/dL Creatinine 0.56 (0.5-1.4) mg/dL Estim Creat Clear Calc TNP Estimated GFR > 60 Random Glucose 83 (60-115) mg/dL Calcium 9.0 (8.4-10.2) mg/dL Total Bilirubin 0.4 (0.0-1.0) mg/dL Direct Bilirubin 0.2 (0.0-0.5) mg/dL AST 19 (5-31) U/L ALT 16 (0-31) U/L Alkaline Phosphatase 44 (39-117) U/L Total Protein 6.9 (6.5-8.0) g/dL Albumin 4.1 (3.5-5.0) g/dL Beta HCG, Quant 23827 mIU/mL Urine Color Yellow Urine Appearance Cloudy Urine pH 8.0 (5.0-9.0) Ur Specific [place] 1.020 (1.005-1.025) Urine Protein Trace (Neg-Trace) mg/dL Urine Glucose (UA) Negative (Negative) mg/dL Urine Ketones 15 (Negative) mg/dL Urine Blood Negative (Negative) Urine Nitrite Negative (Negative) Ur Leukocyte Esterase Trace H (Negative) Urine RBC 0-2 (0-2) /HPF Urine WBC 0-5 (0-5) /HPF Ur Squamous Epith Cells 11-20 (0-2) /HPF Urine Bacteria 3+ (None Seen) Hyaline Casts 0-2 (0-2) /LPF Influenza Type A (PCR) NEGATIVE (Negative) Influenza Type B (PCR) NEGATIVE (Negative) RSV RNA Qual (PCR) NEGATIVE (Negative) SARS-CoV-2 RNA (RT-PCR) NEGATIVE (Negative) S. pyogenes GrpA AIDA Negative (Negative) Independent Interpretation I performed an independent interpretation of an: Ultrasound (IUP with movement and heart rate noted) Radiology Impression Discussion of test interpretation with radiology: I have reviewed the radiologist's reading. External Record Review External record reviewed: Outpatient record Prescription Management I considered prescription management with: Other Discharge Plan Discharge Clinical Impression: Acute viral syndrome Patient Disposition: Home, Self-Care Instructions: Viral Syndrome (ED) Additional Instructions: Your labs were reassuring as was your panel for flu COVID and RSV those were all negative Your urine showed you should be drinking more fluids Your ultrasound showed a was normal appearance and heart rate of 153 Rest and stay hydrated you can take Tylenol as needed for aches and pains Follow up with your OBGYN provider Return for any worsening symptoms or concerns Your strep test is negative Prescriptions: No Action No Known Home Meds Stand Alone Forms: Work/School Release Print Language: Kyrgyz
[2025-11-28] MEDS: Lactated Ringers 1,000 ML 999 ML IV (10:24)
[2025-11-28 10:35] LABS: Strep A Nucleic Acid Negative (Negative)
[2025-11-28 11:17] VITALS: BP 153/79; PULSE 62; RESP 18; TEMP 36.7; O2SAT 97
== END 2025-11-28 11:22 | disposition home or self-care (01) ==
PROVIDERS: Emergency Provider Emergency Medicine
DX: O98.511 Other viral diseases complicating pregnancy, first trimester (principal); B34.9 Viral infection, unspecified; Z3A.13 13 weeks gestation of pregnancy; J02.9 Acute pharyngitis, unspecified; R05.9 Cough, unspecified; Z03.818 Encounter for observation for suspected exposure to other biological agents ruled out
CPT/HCPCS: 36415; 76801; 80048; 80051; 80076; 81001; 84702; 85025; 87637; 87651; 96360; 99282; 99284; J7120

== ENCOUNTER → 2025-11-28 09:46 | Outpatient (BNV) | payer OTHER, SELFPAY | PROVIDERS: Emergency Provider Emergency Medicine; Visit Provider Radiology Diagnostic Radiology | DX: O26.899 Other specified pregnancy related conditions, unspecified trimester (principal); Z3A.14 14 weeks gestation of pregnancy | CPT/HCPCS: 76801 ==